=== PATIENT | female | born 1960 | race Caucasian/White ===

== ENCOUNTER 2017-03-07 19:49 | Inpatient (IN) | payer SELFPAY ==
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
[2017-03-07 20:24] LABS: % BASOPHILS 0.9 % (0.0-2.0); % EOSINOPHILS 0.5 % (0.0-5.0); % LYMPHOCYTES 17.3 % (20.0-50.0); % MONOCYTES 4.1 % (2.0-10.0); % NEUTROPHILS 77.2 % (40.0-80.0); HEMATOCRIT 34.9 % (35.0-45.0); HEMOGLOBIN 11.9 gm/dL (11.7-15.5); MEAN CELL VOLUME 98.3 fl (81-100); MEAN CORPUSCULAR HEMOGLOBIN 33.5 pg (27.0-31.0); MEAN CORPUSCULAR HGB CONC 34.1 pg (28.0-36.0); MEAN PLATELET VOLUME 7.2 fl; NEUTROPHILE ABSOLUTE 5.1 Th/cmm (1.8-8.0); PLATELET COUNT 265 Th/cmm (150-400); RED BLOOD COUNT 3.55 Mil/cmm (3.80-5.10); RED CELL DISTRIBUTION WIDTH 11.9 % (11.5-20.0); WHITE BLOOD COUNT 6.6 Th/cmm (4.8-10.8)
[2017-03-07 20:40] LABS: ALB/GLOB RATIO 1.4 (1.0-1.8); ALKALINE PHOSPHATASE 75 U/L (34-104); ANION GAP 7.5 (7.0-16.0); BILIRUBIN,TOTAL 0.3 mg/dL (0.3-1.0); BUN - UREA NITROGEN 12 mg/dL (7-25); BUN/CREATININE RATIO 13.3; CALCIUM SERUM 9.3 mg/dL (8.6-10.3); CARBON DIOXIDE 29.3 mEq/L (21.0-31.0); CHLORIDE 106 mEq/L (98-107); CREATININE - SERUM 0.9 mg/dL (0.6-1.2); GLUCOSE 104 mg/dL (70-105); POTASSIUM SERUM 3.8 mEq/L (3.5-5.1); SGOT 20 U/L (13-39); SGPT/ALT 13 U/L (7-52); SODIUM SERUM 139 mEq/L (136-145)
[2017-03-07] MEDS ORDERED: Albuterol Nebulizer 2.5mg/3mL HHN PRN (22:46)
[2017-03-07] MEDS ORDERED: Ipratropium Neb 0.5 mg/2.5 mL UD IH PRN (22:46)
[2017-03-07] MEDS ORDERED: guaiFENesin 200 MG/10 ML UDC PO PRN (22:46)
[2017-03-07] MEDS: D5-0.45NS 1,000 ML IV SCH (23:31)
--- NOTE | 2017-03-08 01:42 | Admit Criteria Form ---
Admit Criteria Forms - Admit Criteria Diagnosis: PSYCHIATRIC DISORDERS Clinical Indications for Inpatient Care (Place 'X' for any and all applicable criteria): Ongoing inpatient care may be needed for ANY ONE of the following(1)(2)(3)(4)(6) (7)(8): [ ]I. Danger to self or others not manageable at lower level of care. [ ]II. Grave disability (eg, inability to perform self care necessary at lower level of care) [ ]III. Agitation or inappropriate behavior interfering with care for primary condition (eg, attempting to discontinue lines or drains prematurely, unable to cooperate with respiratory care) [X]IV. Severe disability or disorder indicated by ALL of the following: [X]a) Severe behavioral health disorder-related symptoms or condition indicated by ANY ONE of the following: [ ]i) Severe problem with cognition, memory, judgment, or impulse control [X]ii) Severe clinical manifestations (eg, hallucinations, delusions, other acute psychotic symptoms, lora, extreme agitation or anxiety) [X]b) Patient management at lower level of care is not feasible until acute intervention or modification is initiated. Extended stay beyond goal length of stay for the primary condition may be indicated when ANY ONE of the following is present: (1)(2)(3)(4): [ ]a) Patient is a danger to self or others and not manageable at lower level of care. [ ]b) Behavior crisis management, including physical or chemical restraints, is required and is not available at a lower level of care. [ ]c) Behavioral symptoms (e.g., agitation, somnolence, inappropriate behavior) are present, and are not manageable at a lower level of care. [ ]d) Patient cannot understand follow-up treatment and crisis plan. [ ]e) Provider and supports are not sufficiently available at lower level of care. [ ]f) Patient cannot participate (e.g., verify absence of plan for harm) and is in needed of monitoring. The original [facility] content created by [facility] has been revised. The portions of the content which have been revised are identified through the use of italic text or in bold, and [facility] has neither reviewed nor approved the modified material. All other unmodified content is copyright [facility]. Please see references footnoted in the original [facility] edition 2016 Admit Criteria Met?: Yes
[2017-03-08 05:03] VITALS: BP 129/75
[2017-03-08] MEDS: Multivitamin w/ Minerals Tab PO SCH (08:38)
[2017-03-08] MEDS ORDERED: Haloperidol Lactate 5 mg/mL 1mL Vial IM ONE (13:26)
[2017-03-08] MEDS ORDERED: DONEPEZIL HCL 23 MG PO SCH (21:00)
[2017-03-08] MEDS ORDERED: Non-Formulary Item 1 EA (Melatonin [Melatonin] 10 MG) PO SCH (21:00)
[2017-03-08] MEDS ORDERED: OLANZAPINE PO SCH (21:00)
[2017-03-08] MEDS ORDERED: [UNRECOGNIZED DRUG - OTHER] PO SCH (21:00)
[2017-03-08] MEDS ORDERED: FLUOXETINE HCL PO SCH (21:00)
--- NOTE | 2017-03-08 21:17 | History & Physical ---
ADMIT DATE: 03/08/2017 CHIEF COMPLAINT: Increased agitation and change in mental status. HISTORY OF PRESENT ILLNESS: This is an unfortunate 56-year-old female apparently with early onset dementia, schizoaffective disorder, was admitted from the facility ____ in [place]. The patient [facility]. The patient is agitated, trying to get in other facility, not taking her medications. 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 PAST MEDICAL HISTORY: As mentioned in history present illness. PAST SURGICAL HISTORY: Unable to obtain from the patient. ALLERGIES: No known drug allergies. MEDICATIONS: Depakote, multivitamin, Tylenol. FAMILY HISTORY: Noncontributory. SOCIAL HISTORY: Resides in a nursing facility at this time. 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 REVIEW OF SYSTEMS: This is limited secondary to the patient's current mental state. We will try to get more detailed review of systems at a later date by talking to family members, ____, number [phone]. Also tried to get information from nursing staff at the [facility] in [place] [phone] as well as from Dr. Childers who has followed the patient for Psychiatry and the patient's primary care doctor at the facility. PHYSICAL EXAMINATION: VITAL SIGNS: Blood pressure 118/64, respirations 18, pulse 80, temperature 98.6. GENERAL: Middle-aged female patient with 1:1 and a bit agitated, pacing the room and gait ____ to be steady. NECK: Supple. No mass. LUNGS: Equal breath sounds, otherwise clear to auscultation. HEART: Regular rate and rhythm without appreciable murmur. ABDOMEN: Soft, nontender. EXTREMITIES: No clubbing, cyanosis. Positive excoriations. NEUROLOGIC: Limited, moving all 4 extremities. Again, gait is quite stable. LABORATORY DATA: Reviewed. Hemoglobin 11.3. Rest are within normal range. ASSESSMENT AND PLAN: Altered level of consciousness, increasing agitation, dementia, anemia, schizoaffective disorder. We will ____ altered level of consciousness, which is different from her baseline. We will refer the patient to Psychiatry for adjustment of psychotropic medication. We will also refer the patient to Neurology to make sure nothing is being missed as far as organic causes of change in mental status. We will continue IV hydration. We will send urine for C and S. We will continue to monitor the patient closely. We will place her on fall precaution as well as 1:1. [facility]# [id number]
[2017-03-09] MEDS: D5-0.45NS 1,000 ML IV SCH ×2 (01:01→18:10)
--- NOTE | 2017-03-09 05:09 | Consultation ---
DATE OF CONSULTATION: 03/08/2017 The patient was seen, chart reviewed, and discussed with staff. HISTORY OF PRESENT ILLNESS: The patient is a 56-year-old female, who was sent from her facility [facility] for increased agitation, anger outburst, confusion, and altered mental status. The patient is noted to be somewhat restless now on medical floor with lying, possible infection, UTI. The patient is a poor historian, confused, talking to herself. PAST PSYCHIATRIC HISTORY: Dementia, not otherwise specified. PAST MEDICAL HISTORY: As per H and P. PSYCHOSOCIAL HISTORY: supportive and involved . MENTAL STATUS EXAMINATION: The patient is oriented to person; not oriented to time or place. The patient is easily agitated, paranoid, responding to internal stimuli. Insight is poor. Judgment is impaired. ASSESSMENT: Psychosis, not otherwise specified; dementia, possible Alzheimer's type onset. PLAN: Would recommend continuation of medical supportive measures. The patient has been apparently not compliant with her psychiatric medications. The patient received Haldol 5, Ativan 1, and Benadryl 50 mg IM with good response. Consider using Haldol Decanoate to help improve compliance. We will follow closely while in the hospital. Encourage the patient to comply with medications. Thank you for the consultation. [facility]# [id number]
[2017-03-09 08:26] LABS: URINE BILIRUBIN NEGATIVE (NEGATIVE); URINE COLOR YELLOW; URINE GLUCOSE (UA) NEGATIVE (NEGATIVE); URINE KETONE NEGATIVE (NEGATIVE)
[2017-03-09 08:29] LABS: URINE BLOOD MODERATE (NEGATIVE); URINE PROTEIN NEGATIVE (NEGATIVE)
[2017-03-09 08:30] LABS: URINE BACTERIA FEW /hpf (NONE SEEN); URINE EPITHELIAL CELLS FEW /lpf (FEW); URINE UROBILINOGEN 0.2 E.U./dL (0.2 - 1.0)
[2017-03-09] MEDS: Multivitamin w/ Minerals Tab PO SCH (08:56)
--- NOTE | 2017-03-09 10:01 | Diagnostic Imaging Report ---
Portable chest x-ray History: Cough Allowing for portable technique the heart size is normal. No focal pulmonary parenchymal processes. No hilar or mediastinal abnormalities. Impression: No acute abnormalities.
--- NOTE | 2017-03-09 15:40 | Internal Medicine Prog Note ---
Internal Medicine Subjective - Subjective Patient seen and examined:: with staff, chart reviewed Patient is:: awake, verbal, interactive Patient Complaints of:: congestion Per staff patient is:: no adverse event, no episodes of fall, poor appetite, unstable gait, agitated, combative, noncompliant, confused Internal Medicine Objective - Results Result Diagrams: 03/07/17 20:16 03/07/17 20:16 Recent Labs: Laboratory Last Values WBC 6.6 Th/cmm (4.8-10.8) 03/07/17 20:16 RBC 3.55 Mil/cmm (3.80-5.10) L 03/07/17 20:16 Hgb 11.9 gm/dL (11.7-15.5) 03/07/17 20:16 Hct 34.9 % (35.0-45.0) L 03/07/17 20:16 MCV 98.3 fl (81-100) 03/07/17 20:16 MCH 33.5 pg (27.0-31.0) H 03/07/17 20: MCHC Differential 34.1 pg (28.0-36.0) 03/07/17 20:16 RDW 11.9 % (11.5-20.0) 03/07/17 20:16 Plt Count 265 Th/cmm (150-400) 03/07/17 20:16 MPV 7.2 fl 03/07/17 20:16 Neutrophils % 77.2 % (40.0-80.0) 03/07/17 20:16 Lymphocytes % 17.3 % (20.0-50.0) L 03/07/17 20:16 Monocytes % 4.1 % (2.0-10.0) 03/07/17 20:16 Eosinophils % 0.5 % (0.0-5.0) 03/07/17 20: Basophils % 0.9 % (0.0-2.0) 03/07/17 20:16 Sodium 139 mEq/L (136-145) 03/07/17 20:16 Potassium 3.8 mEq/L (3.5-5.1) 03/07/17 20:16 Chloride 106 mEq/L (98-107) 03/07/17 20:16 Carbon Dioxide 29.3 mEq/L (21.0-31.0) 03/07/17 20:16 Anion Gap 7.5 (7.0-16.0) 03/07/17 20:16 BUN 12 mg/dL (7-25) 03/07/17 20:16 Creatinine 0.9 mg/dL (0.6-1.2) 03/07/17 20:16 Est GFR ( Amer) > 60.0 ml/min (>90) 03/07/17 20:16 Est GFR (Non-Af Amer) > 60.0 ml/min 03/07/17 20:16 BUN/Creatinine Ratio 13.3 03/07/17 20:16 Glucose 104 mg/dL (70-105) 03/07/17 20:16 Calcium 9.3 mg/dL (8.6-10.3) 03/07/17 20:16 Total Bilirubin 0.3 mg/dL (0.3-1.0) 03/07/17 20:16 AST 20 U/L (13-39) 03/07/17 20:16 ALT 13 U/L (7-52) 03/07/17 20:16 Alkaline Phosphatase 75 U/L (34-104) 03/07/17 20:16 Total Protein 7.1 gm/dL (6.0-8.3) 03/07/17 20:16 Albumin 4.1 gm/dL (3.7-5.3) 03/07/17 20:16 Globulin 3.0 gm/dL 03/07/17 20:16 Albumin/Globulin Ratio 1.4 (1.0-1.8) 03/07/17 20:16 Urine Source CATH 03/09/17 07:15 Urine Color YELLOW 03/09/17 07:15 Urine Clarity CLEAR (CLEAR) 03/09/17 07:15 Urine pH 7.0 03/09/17 07:15 Ur Specific [place] 1.020 (1.005-1.030) 03/09/17 07:15 Urine Protein NEGATIVE mg/dL (NEGATIVE) 03/09/17 07:15 Urine Glucose (UA) NEGATIVE mg/dL (NEGATIVE) 03/09/17 07:15 Urine Ketones NEGATIVE mg/dL (NEGATIVE) 03/09/17 07:15 Urine Blood MODERATE (NEGATIVE) H 03/09/17 07:15 Urine Nitrate NEGATIVE (NEGATIVE) 03/09/17 07:15 Urine Bilirubin NEGATIVE (NEGATIVE) 03/09/17 07:15 Urine Urobilinogen 0.2 E.U./dL (0.2 - 1.0) 03/09/17 07:15 Ur Leukocyte Esterase TRACE (NEGATIVE) H 03/09/17 07:15 Urine RBC 10-25 /hpf (0-5) H 03/09/17 07:15 Urine WBC 6-10 /hpf (0-5) H 03/09/17 07:15 Ur Epithelial Cells FEW /lpf (FEW) 03/09/17 07:15 Urine Bacteria FEW /hpf (NONE SEEN) 03/09/17 07:15 Valproic Acid 61.2 ug/mL (50.0-100.0) 03/07/17 20:16 - Physical Exam Vitals and I&O: Vital Signs Temp 97.8 F 03/09/17 12:00 Pulse 84 03/09/17 12:00 Resp 18 03/09/17 12:00 BP 136/82 03/09/17 12:00 Pulse Ox 97 03/09/17 12:00 Intake & Output 03/08/17 03/09/17 03/09/17 18:59 06:59 18:59 Intake Total 1800 Balance 1800 Intake: Intake, IV Amount 1000 D5-0.45NS 1,000 ml @ 80 1000 mls/hr IV .[id number] [facility] Rx #:[id number] Oral 800 Other: # Voids 2 Active Medications: Current Medications Acetaminophen (Tylenol) 650 mg PO Q4H PRN PRN Reason: Pain Or Fever above 101 Stop: 05/06/17 22:45 Albuterol Sulfate (Albuterol 2.5mg/3ml Neb Ud) 2.5 mg HHN Q2HRT PRN PRN Reason: Shortness of Breath or Wheeze Stop: 05/06/17 22:45 Docusate Sodium (Colace) 100 mg PO DAILY [facility] Stop: 05/07/17 08:59 Last Admin: 03/09/17 08:56 Dose: 100 mg Guaifenesin (Robitussin) 200 mg PO Q4HR PRN PRN Reason: Cough or Congestion Stop: 05/06/17 22:45 Dextrose/Sodium Chloride (D5-0.45ns) 1,000 mls @ 80 mls/hr IV .[id number] [facility] Stop: 05/06/17 22:59 Last Admin: 03/09/17 01:01 Dose: 80 mls/hr Ipratropium [place] (Atrovent Neb 0.5mg/2.5ml) 0.5 mg IH Q2HRT PRN PRN Reason: Shortness of Breath or Wheeze Stop: 05/06/17 22:45 Memantine (Namenda) 10 mg PO BID [facility] Stop: 05/07/17 08:59 Last Admin: 03/09/17 08:55 Dose: 10 mg Ondansetron HCl (Zofran) 4 mg IV Q8H PRN PRN Reason: Nausea / Vomiting Stop: 05/06/17 22:45 Quetiapine Fumarate (Seroquel) 25 mg PO TID [facility] PRN Reason: Protocol Stop: 05/07/17 13:59 Last Admin: 03/09/17 13:04 Dose: 25 mg Valproate Sodium (Depakene) 500 mg PO 0900 [facility] PRN Reason: Protocol Stop: 05/07/17 08:59 Last Admin: 03/09/17 08:55 Dose: 500 mg Valproate Sodium (Depakene) 625 mg PO 2100 [facility] PRN Reason: Protocol Stop: 05/07/17 20:59 Zolpidem Tartrate (Ambien) 10 mg PO HS PRN PRN Reason: Insomnia Stop: 05/06/17 22:45 General: demented HEENT: NC/AT, PERRLA Neck: Supple, No JVD Lungs: CTAB Cardiovascular: RRR, Normal S1, Normal S2 Abdomen: soft non-tender, globular, positive bowel sound Extremities: excoriation Neurological: no change, unsteady, unable to follow command Internal Medicine Assmt/Plan - Assessment Assessment: uti Altered level of consciousness, increasing agitation, dementia, anemia, schizoaffective disorder - Plan Plan: cont on ivf cont w 1:1 will start on levaquin psych follow up had long discussion w miguelina
[2017-03-09] MEDS ORDERED: Haloperidol Lactate 5 mg/mL 1mL Vial IM PRN (18:51)
[2017-03-10] MEDS: Multivitamin w/ Minerals Tab PO SCH (08:47)
--- NOTE | 2017-03-10 11:06 | Internal Medicine Prog Note ---
Internal Medicine Subjective - Subjective Patient seen and examined:: with staff, chart reviewed Patient is:: awake, verbal, non-interactive Per staff patient is:: no adverse event, no episodes of fall, agitated, combative, noncompliant, confused Internal Medicine Objective - Results Result Diagrams: 03/07/17 20:16 03/07/17 20:16 Recent Labs: Laboratory Last Values WBC 6.6 Th/cmm (4.8-10.8) 03/07/17 20:16 RBC 3.55 Mil/cmm (3.80-5.10) L 03/07/17 20:16 Hgb 11.9 gm/dL (11.7-15.5) 03/07/17 20:16 Hct 34.9 % (35.0-45.0) L 03/07/17 20:16 MCV 98.3 fl (81-100) 03/07/17 20:16 MCH 33.5 pg (27.0-31.0) H 03/07/17 20:16 MCHC Differential 34.1 pg (28.0-36.0) 03/07/17 20:16 RDW 11.9 % (11.5-20.0) 03/07/17 20:16 Plt Count 265 Th/cmm (150-400) 03/07/17 20:16 MPV 7.2 fl 03/07/17 20:16 Neutrophils % 77.2 % (40.0-80.0) 03/07/17 20:16 Lymphocytes % 17.3 % (20.0-50.0) L 03/07/17 20:16 Monocytes % 4.1 % (2.0-10.0) 03/07/17 20:16 Eosinophils % 0.5 % (0.0-5.0) 03/07/17 20:16 Basophils % 0.9 % (0.0-2.0) 03/07/17 20:16 Sodium 139 mEq/L (136-145) 03/07/17 20:16 Potassium 3.8 mEq/L (3.5-5.1) 03/07/17 20:16 Chloride 106 mEq/L (98-107) 03/07/17 20:16 Carbon Dioxide 29.3 mEq/L (21.0-31.0) 03/07/17 20:16 Anion Gap 7.5 (7.0-16.0) 03/07/17 20:16 BUN 12 mg/dL (7-25) 03/07/17 20:16 Creatinine 0.9 mg/dL (0.6-1.2) 03/07/17 20:16 Est GFR ( Amer) > 60.0 ml/min (>90) 03/07/17 20:16 Est GFR (Non-Af Amer) > 60.0 ml/min 03/07/17 20:16 BUN/Creatinine Ratio 13.3 03/07/17 20:16 Glucose 104 mg/dL (70-105) 03/07/17 20:16 Calcium 9.3 mg/dL (8.6-10.3) 03/07/17 20:16 Total Bilirubin 0.3 mg/dL (0.3-1.0) 03/07/17 20:16 AST 20 U/L (13-39) 03/07/17 20:16 ALT 13 U/L (7-52) 03/07/17 20:16 Alkaline Phosphatase 75 U/L (34-104) 03/07/17 20:16 Total Protein 7.1 gm/dL (6.0-8.3) 03/07/17 20:16 Albumin 4.1 gm/dL (3.7-5.3) 03/07/17 20:16 Globulin 3.0 gm/dL 03/07/17 20:16 Albumin/Globulin Ratio 1.4 (1.0-1.8) 03/07/17 20:16 Urine Source CATH 03/09/17 07:15 Urine Color YELLOW 03/09/17 07:15 Urine Clarity CLEAR (CLEAR) 03/09/17 07:15 Urine pH 7.0 03/09/17 07:15 Ur Specific [place] 1.020 (1.005-1.030) 03/09/17 07:15 Urine Protein NEGATIVE mg/dL (NEGATIVE) 03/09/17 07:15 Urine Glucose (UA) NEGATIVE mg/dL (NEGATIVE) 03/09/17 07:15 Urine Ketones NEGATIVE mg/dL (NEGATIVE) 03/09/17 07:15 Urine Blood MODERATE (NEGATIVE) H 03/09/17 07:15 Urine Nitrate NEGATIVE (NEGATIVE) 03/09/17 07:15 Urine Bilirubin NEGATIVE (NEGATIVE) 03/09/17 07:15 Urine Urobilinogen 0.2 E.U./dL (0.2 - 1.0) 03/09/17 07:15 Ur Leukocyte Esterase TRACE (NEGATIVE) H 03/09/17 07:15 Urine RBC 10-25 /hpf (0-5) H 03/09/17 07:15 Urine WBC 6-10 /hpf (0-5) H 03/09/17 07:15 Ur Epithelial Cells FEW /lpf (FEW) 03/09/17 07:15 Urine Bacteria FEW /hpf (NONE SEEN) 03/09/17 07:15 Valproic Acid 61.2 ug/mL (50.0-100.0) 03/07/17 20:16 - Physical Exam Vitals and I&O: Vital Signs Temp 98.0 F 03/10/17 04:00 Pulse 97 03/10/17 08:04 Resp 14 03/10/17 08:04 BP 130/72 03/10/17 04:00 Pulse Ox 95 03/10/17 08:04 Intake & Output 03/09/17 03/10/17 03/10/17 18:59 06:59 18:59 Intake Total 1950 150 Output Total 1 Balance 1950 149 Weight (lbs) 54.885 kg Intake: Intake, IV Amount 1000 D5-0.45NS 1,000 ml @ 80 1000 mls/hr IV .[id number] [facility] Rx #:[id number] Oral 950 150 Output: Urine 1 Other: # Voids 4 1 # Bowel Movements 2 0 Active Medications: Current Medications Acetaminophen (Tylenol) 650 mg PO Q4H PRN PRN Reason: Pain Or Fever above 101 Stop: 05/06/17 22:45 Albuterol Sulfate (Albuterol 2.5mg/3ml Neb Ud) 2.5 mg HHN Q2HRT PRN PRN Reason: Shortness of Breath or Wheeze Stop: 05/06/17 22:45 Diphenhydramine HCl (Benadryl 50 Mg/Ml) 50 mg IM UD PRN PRN Reason: Agitation Stop: 03/10/17 18:52 Docusate Sodium (Colace) 100 mg PO DAILY [facility] Stop: 05/07/17 08:59 Last Admin: 03/10/17 08:47 Dose: 100 mg Guaifenesin (Robitussin) 200 mg PO Q4HR PRN PRN Reason: Cough or Congestion Stop: 05/06/17 22:45 Haloperidol Lactate (Haldol) 2.5 mg IM UD PRN PRN Reason: Agitation Stop: 03/10/17 18:50 Dextrose/Sodium Chloride (D5-0.45ns) 1,000 mls @ 80 mls/hr IV .[id number] [facility] Stop: 05/06/17 22:59 Last Admin: 03/09/17 18:10 Dose: 80 mls/hr Ipratropium [place] (Atrovent Neb 0.5mg/2.5ml) 0.5 mg IH Q2HRT PRN PRN Reason: Shortness of Breath or Wheeze Stop: 05/06/17 22:45 Levofloxacin (Levaquin) 500 mg PO DAILY [facility] Stop: 05/09/17 08:59 Last Admin: 03/10/17 08:47 Dose: 500 mg Memantine (Namenda) 10 mg PO BID [facility] Stop: 05/07/17 08:59 Last Admin: 03/10/17 08:48 Dose: 10 mg Ondansetron HCl (Zofran) 4 mg IV Q8H PRN PRN Reason: Nausea / Vomiting Stop: 05/06/17 22:45 Quetiapine Fumarate (Seroquel) 50 mg PO TID [facility] PRN Reason: Protocol Stop: 05/08/17 20:59 Last Admin: 03/10/17 08:48 Dose: 50 mg Valproate Sodium (Depakene) 500 mg PO 0900 [facility] PRN Reason: Protocol Stop: 05/07/17 08:59 Last Admin: 03/10/17 08:48 Dose: 500 mg Valproate Sodium (Depakene) 625 mg PO 2100 [facility] PRN Reason: Protocol Stop: 05/07/17 20:59 Last Admin: 03/09/17 21:00 Dose: Not Given Zolpidem Tartrate (Ambien) 10 mg PO HS PRN PRN Reason: Insomnia Stop: 05/06/17 22:45 General: demented HEENT: NC/AT, PERRLA Neck: Supple, No JVD Lungs: CTAB Cardiovascular: RRR, Normal S1, Normal S2 Abdomen: soft non-tender, globular, positive bowel sound Extremities: excoriation Neurological: no change, disorganized, unable to follow command Internal Medicine Assmt/Plan - Assessment Assessment: uti Altered level of consciousness, increasing agitation, dementia, anemia, schizoaffective disorder - Plan Plan: cont on ivf cont w 1:1 will start on levaquin psych follow up had long discussion w miguelina
[2017-03-11 06:10] LABS: % BASOPHILS 0.1 % (0.0-2.0); % EOSINOPHILS 1.1 % (0.0-5.0); % LYMPHOCYTES 34.3 % (20.0-50.0); % MONOCYTES 6.6 % (2.0-10.0); % NEUTROPHILS 57.9 % (40.0-80.0); HEMATOCRIT 32.4 % (35.0-45.0); MEAN CELL VOLUME 98.7 fl (81-100); MEAN CORPUSCULAR HEMOGLOBIN 33.4 pg (27.0-31.0); MEAN CORPUSCULAR HGB CONC 33.8 pg (28.0-36.0); MEAN PLATELET VOLUME 7.4 fl; NEUTROPHILE ABSOLUTE 3.1 Th/cmm (1.8-8.0); PLATELET COUNT 255 Th/cmm (150-400); RED BLOOD COUNT 3.28 Mil/cmm (3.80-5.10); WHITE BLOOD COUNT 5.5 Th/cmm (4.8-10.8)
[2017-03-11 06:34] LABS: ALB/GLOB RATIO 1.3 (1.0-1.8); ALKALINE PHOSPHATASE 61 U/L (34-104); BILIRUBIN,TOTAL 0.5 mg/dL (0.3-1.0); BUN - UREA NITROGEN 13 mg/dL (7-25); CALCIUM SERUM 9.7 mg/dL (8.6-10.3); CARBON DIOXIDE 32.6 mEq/L (21.0-31.0); CHLORIDE 106 mEq/L (98-107); GLUCOSE 81 mg/dL (70-105); MAGNESIUM 2.2 mg/dL (1.9-2.7); POTASSIUM SERUM 4.6 mEq/L (3.5-5.1); SGOT 16 U/L (13-39); SGPT/ALT 10 U/L (7-52); SODIUM SERUM 139 mEq/L (136-145)
[2017-03-11] MEDS: Multivitamin w/ Minerals Tab PO SCH (10:16)
--- NOTE | 2017-03-11 10:18 | Internal Medicine Prog Note ---
Internal Medicine Subjective - Subjective Patient seen and examined:: with staff, chart reviewed Patient is:: asleep, verbal, non-interactive Patient Complaints of:: congestion Per staff patient is:: no adverse event, poor appetite, agitated, combative, noncompliant Internal Medicine Objective - Results Result Diagrams: 03/11/17 05:17 03/11/17 05:17 Recent Labs: Laboratory Last Values WBC 5.5 Th/cmm (4.8-10.8) 03/11/17 05:17 RBC 3.28 Mil/cmm (3.80-5.10) L 03/11/17 05:17 Hgb 11.0 gm/dL (11.7-15.5) L 03/11/17 05:17 Hct 32.4 % (35.0-45.0) L 03/11/17 05:17 MCV 98.7 fl (81-100) 03/11/17 05:17 MCH 33.4 pg (27.0-31.0) H 03/11/17 05:17 MCHC Differential 33.8 pg (28.0-36.0) 03/11/17 05:17 RDW 12.0 % (11.5-20.0) 03/11/17 05:17 Plt Count 255 Th/cmm (150-400) 03/11/17 05:17 MPV 7.4 fl 03/11/17 05:17 Neutrophils % 57.9 % (40.0-80.0) 03/11/17 05:17 Lymphocytes % 34.3 % (20.0-50.0) 03/11/17 05:17 Monocytes % 6.6 % (2.0-10.0) 03/11/17 05:17 Eosinophils % 1.1 % (0.0-5.0) 03/11/17 05:17 Basophils % 0.1 % (0.0-2.0) 03/11/17 05:17 Sodium 139 mEq/L (136-145) 03/11/17 05:17 Potassium 4.6 mEq/L (3.5-5.1) 03/11/17 05:17 Chloride 106 mEq/L (98-107) 03/11/17 05:17 Carbon Dioxide 32.6 mEq/L (21.0-31.0) H 03/11/17 05:17 Anion Gap 5.0 (7.0-16.0) L 03/11/17 05:17 BUN 13 mg/dL (7-25) 03/11/17 05:17 Creatinine 1.0 mg/dL (0.6-1.2) 03/11/17 05:17 Est GFR ( Amer) > 60.0 ml/min (>90) 03/11/17 05:17 Est GFR (Non-Af Amer) > 60.0 ml/min 03/11/17 05:17 BUN/Creatinine Ratio 13.0 03/11/17 05:17 Glucose 81 mg/dL (70-105) 03/11/17 05:17 Calcium 9.7 mg/dL (8.6-10.3) 03/11/17 05:17 Magnesium 2.2 mg/dL (1.9-2.7) 03/11/17 05:17 Total Bilirubin 0.5 mg/dL (0.3-1.0) 03/11/17 05:17 AST 16 U/L (13-39) 03/11/17 05:17 ALT 10 U/L (7-52) 03/11/17 05:17 Alkaline Phosphatase 61 U/L (34-104) 03/11/17 05:17 Total Protein 6.4 gm/dL (6.0-8.3) 03/11/17 05:17 Albumin 3.6 gm/dL (3.7-5.3) L 03/11/17 05:17 Globulin 2.8 gm/dL 03/11/17 05:17 Albumin/Globulin Ratio 1.3 (1.0-1.8) 03/11/17 05:17 Urine Source CATH 03/09/17 07:15 Urine Color YELLOW 03/09/17 07:15 Urine Clarity CLEAR (CLEAR) 03/09/17 07:15 Urine pH 7.0 03/09/17 07:15 Ur Specific [place] 1.020 (1.005-1.030) 03/09/17 07:15 Urine Protein NEGATIVE mg/dL (NEGATIVE) 03/09/17 07:15 Urine Glucose (UA) NEGATIVE mg/dL (NEGATIVE) 03/09/17 07:15 Urine Ketones NEGATIVE mg/dL (NEGATIVE) 03/09/17 07:15 Urine Blood MODERATE (NEGATIVE) H 03/09/17 07:15 Urine Nitrate NEGATIVE (NEGATIVE) 03/09/17 07:15 Urine Bilirubin NEGATIVE (NEGATIVE) 03/09/17 07:15 Urine Urobilinogen 0.2 E.U./dL (0.2 - 1.0) 03/09/17 07:15 Ur Leukocyte Esterase TRACE (NEGATIVE) H 03/09/17 07:15 Urine RBC 10-25 /hpf (0-5) H 03/09/17 07:15 Urine WBC 6-10 /hpf (0-5) H 03/09/17 07:15 Ur Epithelial Cells FEW /lpf (FEW) 03/09/17 07:15 Urine Bacteria FEW /hpf (NONE SEEN) 03/09/17 07:15 Valproic Acid 61.2 ug/mL (50.0-100.0) 03/07/17 20:16 - Physical Exam Vitals and I&O: Vital Signs Temp 97 F 03/11/17 03:44 Pulse 60 03/11/17 03:44 Resp 18 03/11/17 03:44 BP 97/52 03/11/17 03:44 Pulse Ox 95 03/11/17 03:44 Intake & Output 03/10/17 03/11/17 03/11/17 18:59 06:59 18:59 Intake Total 850 340 Balance 850 340 Weight (lbs) 52.617 kg Intake: Oral 850 340 Other: # Voids 3 3 # Bowel Movements 1 0 Stool Characteristics Soft Soft Formed Formed Active Medications: Current Medications Acetaminophen (Tylenol) 650 mg PO Q4H PRN PRN Reason: Pain Or Fever above 101 Stop: 05/06/17 22:45 Albuterol Sulfate (Albuterol 2.5mg/3ml Neb Ud) 2.5 mg HHN Q2HRT PRN PRN Reason: Shortness of Breath or Wheeze Stop: 05/06/17 22:45 Docusate Sodium (Colace) 100 mg PO DAILY JAGDEEP Stop: 05/07/17 08:59 Last Admin: 03/10/17 08:47 Dose: 100 mg Guaifenesin (Robitussin) 200 mg PO Q4HR PRN PRN Reason: Cough or Congestion Stop: 05/06/17 22:45 Dextrose/Sodium Chloride (D5-0.45ns) 1,000 mls @ 80 mls/hr IV .[id number] [facility] Stop: 05/06/17 22:59 Last Admin: 03/09/17 18:10 Dose: 80 mls/hr Ipratropium [place] (Atrovent Neb 0.5mg/2.5ml) 0.5 mg IH Q2HRT PRN PRN Reason: Shortness of Breath or Wheeze Stop: 05/06/17 22:45 Levofloxacin (Levaquin) 500 mg PO DAILY [facility] Stop: 05/09/17 08:59 Last Admin: 03/11/17 10:16 Dose: 500 mg Memantine (Namenda) 10 mg PO BID [facility] Stop: 05/07/17 08:59 Last Admin: 03/11/17 10:16 Dose: 10 mg Ondansetron HCl (Zofran) 4 mg IV Q8H PRN PRN Reason: Nausea / Vomiting Stop: 05/06/17 22:45 Quetiapine Fumarate (Seroquel) 50 mg PO TID JAGDEEP PRN Reason: Protocol Stop: 05/08/17 20:59 Last Admin: 03/11/17 10:16 Dose: 50 mg Valproate Sodium (Depakene) 500 mg PO 0900 [facility] PRN Reason: Protocol Stop: 05/07/17 08:59 Last Admin: 03/11/17 10:15 Dose: 500 mg Valproate Sodium (Depakene) 625 mg PO 2100 [facility] PRN Reason: Protocol Stop: 05/07/17 20:59 Last Admin: 03/10/17 21:20 Dose: 625 mg Zolpidem Tartrate (Ambien) 10 mg PO HS PRN PRN Reason: Insomnia Stop: 05/06/17 22:45 Last Admin: 03/10/17 21:20 Dose: 10 mg General: demented HEENT: NC/AT, PERRLA Neck: Supple, No JVD Lungs: CTAB Cardiovascular: RRR, Normal S1, Normal S2 Abdomen: soft non-tender, globular, positive bowel sound Extremities: excoriation Neurological: no change, disorganized, unable to follow command Internal Medicine Assmt/Plan - Assessment Assessment: uti Altered level of consciousness, increasing agitation, dementia, anemia, schizoaffective disorder - Plan Plan: cont on ivf cont w 1:1 will start on levaquin psych follow up had long discussion w miguelina
[2017-03-12] MEDS: Multivitamin w/ Minerals Tab PO SCH (08:29)
--- NOTE | 2017-03-12 22:35 | Discharge Summary ---
DATE OF DISCHARGE: 03/12/2017 CHIEF COMPLAINT: Increasing agitation, change in mental status. FINAL DIAGNOSES: Altered level of consciousness with increasing agitation secondary to worsening dementia, noncompliance, anemia, schizoaffective disorder. 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 The patient needed to be cleared medically for further management. PHYSICAL EXAMINATION: VITAL SIGNS: Blood pressure 99/57, respirations 18, pulse 65, and temperature 98.7. GENERAL: A middle-aged female in no acute distress. ____ the patient with a one-to-one. NECK: Supple. LUNGS: Clear with few rhonchi. HEART: Regular rate and rhythm without appreciable murmurs. ABDOMEN: Soft, nontender. EXTREMITIES: Positive excoriations. NEUROLOGIC: Limited. HOSPITAL COURSE: The patient was also diagnosed with UTI, ____ IV hydration and IV antibiotic. The patient on one-to-one. The patient was seen by Dr. Shi and Dr. Childers. The patient was also seen by Dr. Brody. The patient's condition remained stable and was cleared medically. CONDITION ON DISCHARGE: Fair. DISCHARGE INSTRUCTIONS: The patient to be transferred to a custodial facility and a locked unit. JOB# [id number]
--- NOTE | 2017-03-13 02:54 | Progress Notes ---
DATE: 03/12/2017 SUBJECTIVE: I met this patient, discussed with staff, and chart reviewed. Still confused, irritable, but her agitation is decreasing and she is taking her medications. Her p.o. intake is being monitored closely. The patient is denying feeling depressed. The patient's blood pressure is slightly ____ on lower side. ASSESSMENT: Psychosis and agitation decreasing, cognitive disturbances still present. I spoke with , discussed condition in details. The appears to be very receptive, discussed placement options. We will continue current dose of Depakote and Seroquel, use Ativan 0.5 mg p.o. q.4-6 hours p.r.n. anxiety. Monitor closely. The patient is compliant with her medications and has not been aggressive. JOB# [id number]
--- NOTE | 2017-03-13 08:08 | Consultation ---
DATE OF CONSULTATION: 03/12/2017 HISTORY OF PRESENT ILLNESS: The patient is a 56-year-old. The patient with diagnosis of dementia. The patient brought in because of altered mentation. The patient much more awake, alert, now sitting up, feeding herself. She is not able to give any history. PAST MEDICAL HISTORY: Dementia, schizoaffective disorder. MEDICATIONS: Per reconciliation. SOCIAL HISTORY: In a nursing facility. 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 REVIEW OF SYSTEMS: No headache, no seizures. The patient swallows okay. Incontinence. PHYSICAL EXAMINATION: VITAL SIGNS: Temperature 98.2, blood pressure 120/65, pulse is 80. NECK: Supple. No neck bruits. HEART: Sounds S1, S2. NEUROLOGIC: The patient is sitting up. She would not even give me her name. She ____. She followed some simple instruction. She will open and close her eyes for me. She did lift her arms. Really, no other cognitive testing possible. The patient ____. Workup noted. She had been to [facility]. ASSESSMENT: 1. The patient with altered mentation, ____ sensorium is better, so the patient has underlying history of early onset Alzheimer. MRI in the past had shown severe atrophy. 2. History of schizoaffective disorder. 3. Urinary tract infection. PLAN: At this time, continue present treatment. The patient's parkinsonian features could be secondary to medication or related to her disease. [facility]# [id number]
[2017-03-13] MEDS: Multivitamin w/ Minerals Tab PO SCH (08:50)
--- NOTE | 2017-03-13 14:13 | Internal Medicine Prog Note ---
Internal Medicine Subjective - Subjective Patient seen and examined:: with staff, chart reviewed Patient is:: awake, verbal, interactive Per staff patient is:: no adverse event, no episodes of fall, poor appetite, noncompliant Internal Medicine Objective - Results Result Diagrams: 03/11/17 05:17 03/11/17 05:17 Recent Labs: Laboratory Last Values WBC 5.5 Th/cmm (4.8-10.8) 03/11/17 05:17 RBC 3.28 Mil/cmm (3.80-5.10) L 03/11/17 05:17 Hgb 11.0 gm/dL (11.7-15.5) L 03/11/17 05:17 Hct 32.4 % (35.0-45.0) L 03/11/17 05:17 MCV 98.7 fl (81-100) 03/11/17 05:17 MCH 33.4 pg (27.0-31.0) H 03/11/17 05:17 MCHC Differential 33.8 pg (28.0-36.0) 03/11/17 05:17 RDW 12.0 % (11.5-20.0) 03/11/17 05:17 Plt Count 255 Th/cmm (150-400) 03/11/17 05:17 MPV 7.4 fl 03/11/17 05:17 Neutrophils % 57.9 % (40.0-80.0) 03/11/17 05:17 Lymphocytes % 34.3 % (20.0-50.0) 03/11/17 05:17 Monocytes % 6.6 % (2.0-10.0) 03/11/17 05:17 Eosinophils % 1.1 % (0.0-5.0) 03/11/17 05:17 Basophils % 0.1 % (0.0-2.0) 03/11/17 05:17 Sodium 139 mEq/L (136-145) 03/11/17 05:17 Potassium 4.6 mEq/L (3.5-5.1) 03/11/17 05:17 Chloride 106 mEq/L (98-107) 03/11/17 05:17 Carbon Dioxide 32.6 mEq/L (21.0-31.0) H 03/11/17 05:17 Anion Gap 5.0 (7.0-16.0) L 03/11/17 05:17 BUN 13 mg/dL (7-25) 03/11/17 05:17 Creatinine 1.0 mg/dL (0.6-1.2) 03/11/17 05:17 Est GFR ( Amer) > 60.0 ml/min (>90) 03/11/17 05:17 Est GFR (Non-Af Amer) > 60.0 ml/min 03/11/17 05:17 BUN/Creatinine Ratio 13.0 03/11/17 05:17 Glucose 81 mg/dL (70-105) 03/11/17 05:17 Calcium 9.7 mg/dL (8.6-10.3) 03/11/17 05:17 Magnesium 2.2 mg/dL (1.9-2.7) 03/11/17 05:17 Total Bilirubin 0.5 mg/dL (0.3-1.0) 03/11/17 05:17 AST 16 U/L (13-39) 03/11/17 05:17 ALT 10 U/L (7-52) 03/11/17 05:17 Alkaline Phosphatase 61 U/L (34-104) 03/11/17 05:17 Total Protein 6.4 gm/dL (6.0-8.3) 03/11/17 05:17 Albumin 3.6 gm/dL (3.7-5.3) L 03/11/17 05:17 Globulin 2.8 gm/dL 03/11/17 05:17 Albumin/Globulin Ratio 1.3 (1.0-1.8) 03/11/17 05:17 Urine Source CATH 03/09/17 07:15 Urine Color YELLOW 03/09/17 07:15 Urine Clarity CLEAR (CLEAR) 03/09/17 07:15 Urine pH 7.0 03/09/17 07:15 Ur Specific [place] 1.020 (1.005-1.030) 03/09/17 07:15 Urine Protein NEGATIVE mg/dL (NEGATIVE) 03/09/17 07:15 Urine Glucose (UA) NEGATIVE mg/dL (NEGATIVE) 03/09/17 07:15 Urine Ketones NEGATIVE mg/dL (NEGATIVE) 03/09/17 07:15 Urine Blood MODERATE (NEGATIVE) H 03/09/17 07:15 Urine Nitrate NEGATIVE (NEGATIVE) 03/09/17 07:15 Urine Bilirubin NEGATIVE (NEGATIVE) 03/09/17 07:15 Urine Urobilinogen 0.2 E.U./dL (0.2 - 1.0) 03/09/17 07:15 Ur Leukocyte Esterase TRACE (NEGATIVE) H 03/09/17 07:15 Urine RBC 10-25 /hpf (0-5) H 03/09/17 07:15 Urine WBC 6-10 /hpf (0-5) H 03/09/17 07:15 Ur Epithelial Cells FEW /lpf (FEW) 03/09/17 07:15 Urine Bacteria FEW /hpf (NONE SEEN) 03/09/17 07:15 Valproic Acid 61.2 ug/mL (50.0-100.0) 03/07/17 20:16 - Physical Exam Vitals and I&O: Vital Signs Temp 97.6 F 03/13/17 04:00 Pulse 54 03/13/17 07:45 Resp 18 03/13/17 09:41 BP 123/71 03/13/17 04:00 Pulse Ox 100 03/13/17 07:45 Intake & Output 03/12/17 03/13/17 03/13/17 18:59 06:59 18:59 Intake Total 300 Balance 300 Weight (lbs) 57.198 kg 52.758 kg Intake: Oral 300 Other: # Voids 2 # Bowel Movements 0 Stool Characteristics Soft Formed Active Medications: Current Medications Acetaminophen (Tylenol) 650 mg PO Q4H PRN PRN Reason: Pain Or Fever above 101 Stop: 05/06/17 22:45 Last Admin: 03/11/17 14:27 Dose: 650 mg Albuterol Sulfate (Albuterol 2.5mg/3ml Neb Ud) 2.5 mg HHN Q2HRT PRN PRN Reason: Shortness of Breath or Wheeze Stop: 05/06/17 22:45 Docusate Sodium (Colace) 100 mg PO DAILY JAGDEEP Stop: 05/07/17 08:59 Last Admin: 03/13/17 08:50 Dose: 100 mg Guaifenesin (Robitussin) 200 mg PO Q4HR PRN PRN Reason: Cough or Congestion Stop: 05/06/17 22:45 Dextrose/Sodium Chloride (D5-0.45ns) 1,000 mls @ 80 mls/hr IV .[id number] [facility] Stop: 05/06/17 22:59 Last Admin: 03/09/17 18:10 Dose: 80 mls/hr Ipratropium [place] (Atrovent Neb 0.5mg/2.5ml) 0.5 mg IH Q2HRT PRN PRN Reason: Shortness of Breath or Wheeze Stop: 05/06/17 22:45 Levofloxacin (Levaquin) 500 mg PO DAILY [facility] Stop: 05/09/17 08:59 Last Admin: 03/13/17 08:50 Dose: 500 mg Lorazepam (Ativan) 0.5 mg PO Q4HR PRN; Protocol PRN Reason: Anxiety Stop: 05/11/17 18:48 Memantine (Namenda) 10 mg PO BID [facility] Stop: 05/07/17 08:59 Last Admin: 03/13/17 08:50 Dose: 10 mg Ondansetron HCl (Zofran) 4 mg IV Q8H PRN PRN Reason: Nausea / Vomiting Stop: 05/06/17 22:45 Quetiapine Fumarate (Seroquel) 50 mg PO TID JAGDEEP PRN Reason: Protocol Stop: 05/08/17 20:59 Last Admin: 03/13/17 08:50 Dose: 50 mg Valproate Sodium (Depakene) 500 mg PO 0900 [facility] PRN Reason: Protocol Stop: 05/07/17 08:59 Last Admin: 03/13/17 08:50 Dose: 500 mg Valproate Sodium (Depakene) 625 mg PO 2100 [facility] PRN Reason: Protocol Stop: 05/07/17 20:59 Last Admin: 03/12/17 20:46 Dose: 625 mg Zolpidem Tartrate (Ambien) 10 mg PO HS PRN PRN Reason: Insomnia Stop: 05/06/17 22:45 Last Admin: 03/12/17 20:45 Dose: 10 mg General: demented HEENT: NC/AT, PERRLA Neck: Supple, No JVD Lungs: congested Cardiovascular: RRR, Normal S1, Normal S2 Abdomen: soft non-tender, thin, globular Extremities: pedal pulses, excoriation, contracture Neurological: no change Internal Medicine Assmt/Plan - Assessment Assessment: uti Altered level of consciousness, increasing agitation, dementia, anemia, schizoaffective disorder - Plan Plan: cont on ivf cont w 1:1 will start on levaquin psych follow up had long discussion w miguelina Nutritional Asmnt/Malnutr-PDOC - Dietary Evaluation Malnutrition Findings (Please click <Entered> for more info): Nutritional Asmnt/Malnutrition Start: 03/12/17 12: 49 Text: Status: Complete Freq: Document 03/12/17 12:49 GSUN (Rec: 03/12/17 13:08 GSUN [id number]) Nutritional Asmnt/Malnutrition Patient General Information Nutritional Screening Moderate Risk Screening Diagnosis ALOC, increasing agitation, dementia possibly Alzheimer's type onset Pertinent Medical Hx/Surgical Hx Early onset dementia, schizoaffective disorder Subjective Information 56 year old female from SNF. Visited pt with RN and 1:1 sitter at bedside. Pt was awake, confused, unable to interview due to cognition. Pt appeared guarded, unable to complete physical assessment. Pt appeared thin overall, mild wasting to temples. Avg PO intake 33% past 13 meals, meeting 56% kcal and 65% prot needs, suboptimal PO intake 5 days. Observed pudding and juice finished on table. TRAVEL CONSULTANT stated pt likes sweets, pt will eat all the sweets but refuse nava. Current Diet Order/ Nutrition Support Regular Pertinent Medications D5-0.45ns, Colace, Zofran, Seroquel Pertinent Labs Reviewed. Nutritional Hx/Data Height 1.68 m Height (Calculated Centimeters) 167.6 Current Weight (lbs) 57.198 kg Weight (Calculated Kilograms) 57.2 Weight (Calculated Grams) 76208.0 [place] Body Weight 130 Weight Status Approriate GI Symptoms Skin Integrity/Comment: [place] 22. Skin intact. Current %PO Poor (25-49%) Estimated Nutritional Goals BEE in Kcals: Using Current wt Calories/Kcals/Kg CBW 57.2kg Kcals Calculated 1430-1716kcal (25-30kcal/kg) Protein: Using Current wt Protein g/kg: CBW Protein Calculated 57g (1g/kg) Fluid: ml 1430-1716ml (1ml/kcal) Nutritional Problem 1. Problem Problem Inadequate oral food beverage intake related to Etiology cognition aeb Signs/Symptoms: meeting ~50% of estimated nutritional needs day 5 Intervention/Recommendation Comments 1. Continue with regular diet. Recommend Boost BID. 2. Monitor weight. Suboptimal PO intake day 5. Expected Outcomes/Goals Expected Outcomes/Goals 1. PO intake to meet at least 75% fo estimated nutritional needs.
== END 2017-03-13 16:15 | DRG 57 ==
LOC: ER 19:49 → MSI 21:17
PROVIDERS: ADMIT Internal Medicine; ATTEND Internal Medicine
DX: G30.9 Alzheimer's disease, unspecified (principal); F02.81 Dementia in other diseases classified elsewhere, unspecified severity, with behavioral disturbance; N39.0 Urinary tract infection, site not specified; F25.9 Schizoaffective disorder, unspecified; D64.9 Anemia, unspecified; Z66 Do not resuscitate; F29 Unspecified psychosis not due to a substance or known physiological condition; Z91.19 Patient's noncompliance with other medical treatment and regimen
CPT/HCPCS: 36415-UA; 71010-TC; 80053-TC; 80164-TC; 81001-TC; 83735-TC; 85025-TC; 93005; 94760; J1200; J1630; J2060; Z7610

== ENCOUNTER 2017-03-31 18:37 | Inpatient (IN) | payer SELFPAY ==
--- NOTE | 2017-03-31 18:44 | ED Physician Chart ---
Chief Complaint/HPI - Patient Information Date Seen:: 03/31/17 Time Seen:: 18:40 Chief Complaint:: Chin laceration History of Present Illness:: Brought in by ambulance from nursing facility because pt reportedly fell forward from a chair earlier today and sustained a laceration in her chin. No LOC. No mentation change. No other bodily injury or pain. Pt has h/o dementia with Alzheimer's Dz. H & P are limited because pt is uncooperative. Last tetanus immunization is unknown. Allergies:: Allergies Allergy/AdvReac Type Severity Reaction Status Date / Time No Known Allergies Allergy Verified 03/07/17 20:37 Vitals:: see Nurse Note. Historian:: Patient, Medical Records (from transferring facility.) Family MD/PCP:: Dr. Doty LMP:: Postmenopausal Review:: Nurse's Note Reviewed Past Medical History - Past Medical History Past Medical History: Dementia (with Alzheimer's Dz.) Psychiatricy History: Bipolar, Dementia Family Medical History - Family Member Mother History Unknown: Yes Ethnicity: Unknown Living Status: Unknown Physical Exam - Physical Examination General/Constitutional: Awake, Well-developed, well-nourished, Alert, No distress, Non-toxic appearing Other Gen/Cons comments:: Breathes comfortably, speaks clearly, but pt is uncooperative. Head: Atraumatic (except an approx. 1.5 cm transverse superficial laceration at chin. No active bleeding, ecchymosis or swellling. No exudate. No bony tapering or gross deformity detected.) Eyes: Lids, conjuctiva normal, PERRL, EOMI Skin: Well hydrated, No lymphadenopathy ENMT: External ears, nose nl, Nasal exam nl, Lips, teeth, gums nl, Oropharynx nl Other ENMT comments:: Pt has normal movements of both upper and lower jaws. Neck: Nontender, Full ROM w/o pain, No JVD, No nuchal rigidity, No mass, No stridor Respiratory: Nl effort/Exclusion, Clear to Auscultation, No Wheeze/Rhonchi/Rales Cardio Vascular: RRR, No murmur, gallop, rubs GI: No tenderness/rebounding/guarding, No organomegaly, No hernia, Normal BS's, Nondistended, No mass/bruits Other GI comments:: Abdomen is soft. : No CVA tenderness Extremities: No tenderness or effusion, Full ROM, No edema, Normal digits & nails Other Extremities comments:: Both hips and knees: Nontender. No abnormal findings. No leg length discrepancy in the lower extremities. Other Neuro/Psych comments:: Alert. Spontaneous movements noticed in all 4 extremities. Pt does not cooperate for full neurological exam. Misc: normal gait, Normal back, No paraspinal tenderness Labs/Radiology/EKG Results - Lab Results Results: Laboratory Tests 03/31/17 03/31/17 03/31/17 18:55 18:55 18:55 WBC 9.9 D RBC 3.31 L Hgb 10.9 L Hct 32.4 L MCV 97.8 MCH 32.8 H MCHC Differential 33.5 RDW 12.0 Plt Count 274 MPV 7.1 Neutrophils % 84.3 H Lymphocytes % 10.1 L Monocytes % 4.9 Eosinophils % 0.3 Basophils % 0.4 PT 9.4 L INR 0.90 PTT (Actin FS) 24.1 L Sodium 138 Potassium 4.2 Chloride 105 Carbon Dioxide 27.8 Anion Gap 9.4 BUN 25 Creatinine 0.9 Est GFR ( Amer) > 60.0 Est GFR (Non-Af Amer) > 60.0 BUN/Creatinine Ratio 27.8 Glucose 110 H Calcium 10.0 Total Bilirubin 0.3 AST 28 ALT 15 Alkaline Phosphatase 100 Creatine Kinase 174 Troponin I Total Protein 7.4 Albumin 4.3 Globulin 3.1 Albumin/Globulin Ratio 1.4 03/31/17 18:55 WBC RBC Hgb Hct MCV MCH MCHC Differential RDW Plt Count MPV Neutrophils % Lymphocytes % Monocytes % Eosinophils % Basophils % PT INR PTT (Actin FS) Sodium Potassium Chloride Carbon Dioxide Anion Gap BUN Creatinine Est GFR ( Amer) Est GFR (Non-Af Amer) BUN/Creatinine Ratio Glucose Calcium Total Bilirubin AST ALT Alkaline Phosphatase Creatine Kinase Troponin I 0.02 Total Protein Albumin Globulin Albumin/Globulin Ratio Urinalysis is pending. - EKG Interpretations EKG Time:: 19:02 Rate & Rhythm: NSR with VR 84 Comments:: LAE, NSSTT changes. Assessment Laceration Type:: Simple ED Septic Shock - . Is Septic Shock (SBP<90, OR Lactate>4 mmol\L) present?: No Reassessment (Disposition) - Reassessment Reassessment:: 1950 Pt remains stable. No new findings. Chin laceration repair was done after wound was cleansed with betadine and well irrigated with normal saline solution. Wound was well approximated with Dermabond. Pt tolerated the procedure well without immediate complication. Laceration wound length is approx. 1.5 cm. No immediate complication. 2042 Case was discussed with Dr. Doty with pertinent H & P, EKG, and available lab findings reviewed. Pt is to be admitted to Tele[facility] for observation under his care. Reassessment Condition:: Improved - Diagnosis Diagnosis:: s/p fall with resulted superficial chin laceration, s/p repair with Dermabond. Dementia with Alzheimer's Dz. Anemia, stable. - Patient Disposition Admitted to:: Telemetry Admitting Medical Physician:: Augustus Doty Time:: 20:45 Condition at Disposition:: Stable, Improved
[2017-03-31 19:02] LABS: % BASOPHILS 0.4 % (0.0-2.0); % EOSINOPHILS 0.3 % (0.0-5.0); % LYMPHOCYTES 10.1 % (20.0-50.0); % MONOCYTES 4.9 % (2.0-10.0); % NEUTROPHILS 84.3 % (40.0-80.0); HEMATOCRIT 32.4 % (35.0-45.0); HEMOGLOBIN 10.9 gm/dL (11.7-15.5); MEAN CELL VOLUME 97.8 fl (81-100); MEAN CORPUSCULAR HEMOGLOBIN 32.8 pg (27.0-31.0); MEAN CORPUSCULAR HGB CONC 33.5 pg (28.0-36.0); MEAN PLATELET VOLUME 7.1 fl; NEUTROPHILE ABSOLUTE 8.4 Th/cmm (1.8-8.0); PLATELET COUNT 274 Th/cmm (150-400); RED BLOOD COUNT 3.31 Mil/cmm (3.80-5.10)
[2017-03-31 19:08] LABS: WHITE BLOOD COUNT 9.9 Th/cmm (4.8-10.8)
[2017-03-31 19:14] LABS: INR 0.9 (0.5-1.4); PROTHROMBIN TIME (TEST) 9.4 SECONDS (9.5-11.5)
[2017-03-31 19:17] LABS: ALB/GLOB RATIO 1.4 (1.0-1.8); ALKALINE PHOSPHATASE 100 U/L (34-104); ANION GAP 9.4 (7.0-16.0); BILIRUBIN,TOTAL 0.3 mg/dL (0.3-1.0); BUN - UREA NITROGEN 25 mg/dL (7-25); BUN/CREATININE RATIO 27.8; CARBON DIOXIDE 27.8 mEq/L (21.0-31.0); CHLORIDE 105 mEq/L (98-107); CREATININE - SERUM 0.9 mg/dL (0.6-1.2); GLUCOSE 110 mg/dL (70-105); POTASSIUM SERUM 4.2 mEq/L (3.5-5.1); SGOT 28 U/L (13-39); SGPT/ALT 15 U/L (7-52); SODIUM SERUM 138 mEq/L (136-145)
[2017-03-31 19:19] LABS: TROP I 0.02 ng/mL (0.01-0.05)
[2017-03-31] MEDS ORDERED: Sulfamethoxazole/TMP 800/160mg Tab PO ONE (19:56)
[2017-03-31 20:12] LABS: VALPROIC ACID < 10.0 ug/mL (50.0-100.0)
[2017-03-31] MEDS ORDERED: Sulfamethoxazole/TMP 800/160mg Tab ONE (20:13)
[2017-03-31] MEDS ORDERED: Ipratropium Neb 0.5 mg/2.5 mL UD IH PRN (22:51)
[2017-03-31] MEDS ORDERED: Maalox 30 mL Cup PO PRN (22:51)
[2017-03-31] MEDS ORDERED: guaiFENesin 200 MG/10 ML UDC PO PRN (22:51)
[2017-03-31] MEDS ORDERED: Albuterol Nebulizer 2.5mg/3mL HHN PRN (22:51)
[2017-03-31] MEDS: D5-0.9%NS 1,000 ML IV SCH (23:31)
[2017-04-01] MEDS: Multivitamin w/ Minerals Tab PO SCH (08:35)
--- NOTE | 2017-04-01 14:58 | History & Physical ---
ADMIT DATE: 04/01/2017 CHIEF COMPLAINT: Status post fall per staff and ____ consciousness. 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 The patient was seen in the Emergency Room has a laceration, which was treated with Dermabond. The patient lethargic and unable to provide any meaningful history or review of systems. PAST MEDICAL HISTORY: As mentioned in history present illness. PAST SURGICAL HISTORY: Per previous interaction with her , no surgery in the past. ALLERGIES: No known drug allergies. MEDICATIONS: Depakote, multivitamin, Tylenol, and ____. FAMILY HISTORY: Noncontributory. SOCIAL HISTORY: The patient is from jail. 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 REVIEW OF SYSTEMS: This is limited secondary to the patient's current mental state. We will try to obtain more detailed review of systems at a later date by talking to family members, Sam ____, number [phone]. Also try to get information from nursing staff at [facility] at [phone]. PHYSICAL EXAMINATION: VITAL SIGNS: Blood pressure 100/50, respirations 18, pulse ____, temperature 99.1. GENERAL: Middle-aged female, appears older. NECK: Supple, no mass. HEENT: Bilateral temporal wasting. LUNGS: Equal breath sounds, few rhonchi. HEART: Regular rate and rhythm without appreciable murmurs. ABDOMEN: Soft and nontender. EXTREMITIES: Positive excoriations. Positive laceration on the chin area. NEUROLOGIC: Limited, unable to perform cranial, motor and sensory examination. LABORATORY DATA: Detailed in the laboratory ____ findings. WBC was 9.9, hemoglobin 10.9, platelets 274. Sodium ____, potassium 4.2, BUN 25, creatinine 0.9, blood sugar 110 and ____ less than 10. ASSESSMENT AND PLAN: Near syncope, chin laceration, status post fall, metabolic encephalopathy, dementia, anemia. We will continue with wound care. We will perform head CT to rule out any [place] or acute changes. We will refer the patient to Psychiatry. We will continue with current care. We will review the patient's labs and medications. [facility]# [id number]
[2017-04-01 17:17] LABS: URINE COLOR YELLOW
[2017-04-01 17:18] LABS: URINE BACTERIA NONE SEEN /hpf (NONE SEEN); URINE BILIRUBIN NEGATIVE (NEGATIVE); URINE BLOOD NEGATIVE (NEGATIVE); URINE EPITHELIAL CELLS NONE SEEN /lpf (FEW); URINE GLUCOSE (UA) NEGATIVE (NEGATIVE); URINE KETONE NEGATIVE (NEGATIVE); URINE PROTEIN NEGATIVE (NEGATIVE); URINE RBC NONE SEEN /hpf (0-5); URINE UROBILINOGEN 0.2 E.U./dL (0.2 - 1.0); URINE WBC NONE SEEN /hpf (0-5)
[2017-04-01] MEDS: D5-0.9%NS 1,000 ML IV SCH (17:52)
--- NOTE | 2017-04-02 03:21 | Admit Criteria Form ---
Admit Criteria Forms - Admit Criteria Diagnosis: TELEMETRY CARE Telemetry Admission Guidelines (Place 'X' for any and all applicable criteria): Admission to telemetry [A] may be indicated for ANY ONE of the following(1)(2)(3 )(4)(5): [ ]I. Cardiac disease, including ANY ONE of the following (9)(10)(11)(12)(13 ): [ ]a) Postacute NH [ ]b) Low-risk patients with ST-segment elevation NH who have undergone successful percutaneous coronary intervention [ ]c) Unstable angina [ ]d) Suspected NH (until it is ruled out) [ ]e) Post cardiac surgery (first 48 to 72 hours unless complications occur) [ ]f) Acute arrhythmias (including significant tachycardia or bradycardia) [B] [ ]g) Firing of an implantable cardioverter defibrillator [C] [ ]h) Suspected pacemaker or implantable cardioverter defibrillator malfunction (10) [ ]i) New administration or adjustment of an antiarrhythmic drug [D ] [ ]j) Child admitted for acute congestive heart failure [ ]j) Long QT syndrome [ ]k) Advanced heart block (eg, second-degree Mobitz type II, third- degree heart block) [ ]l) Acute myocarditis or pericarditis [ ]m) Short-term (ambulatory or inpatient) monitoring after a cardiac procedure as indicated by ANY ONE of the following [E]: [ ]i) Electrophysiologic studies [ ]ii) Percutaneous coronary intervention with stent placement [ ]iii) Pacemaker placement with cardiac conduction defect [ ]iv) Implantable cardiac defibrillator placement [ ]II. Drug overdose or poisoning with substance that causes arrhythmias or QT prolongation (eg, phenothiazines, sympathomimetic agents, cyclic antidepressants, digitalis, antiarrhythmic drugs)(15) [ ]III. Short-term (ambulatory or inpatient) monitoring after therapeutic or diagnostic procedure requiring conscious sedation or anesthesia (eg, endoscopy, elective cardioversion) [ ]IV. Acute cerebrovascular even[F](18) [ ]V. Massive blood transfusion (eg, at least 10 units of packed red blood cells in 24 hours) [ ]. Variceal bleeding after endoscopy, sclerotherapy, or IV vasopressin [ ]VII. Uncorrected electrolyte abnormalities associated with an increased risk of dangerous arrhythmia [G]; examples include [ ]a) Hyperkalemia with attributable ECG changes [ ]b) Potassium greater than 6.5 mmol/L (mEq/L) in a patient without history of chronic renal disease [ ]c) Prolonged QT attributed to hypokalemia, hypomagnesemia, or hypocalcemia [X]VIII.Unexplained syncope or other neurologic event suspected of being due to arrhythmia due to a finding that increases risk; examples include(19)(20)(21): [ ]a) High-risk ECG findings (eg, bifascicular block, bradycardia, abnormal QT interval, ventricular pre- excitation) [ ]b) History of previous syncope due to arrhythmia [ ]c) Abnormal ventricular function (eg, reduced ejection fraction ) [ ]d) Exertional or supine syncope [X]e) Concerning syncope characteristics (eg, sudden loss of consciousness without prodrome) [ ]f) Family history of sudden [ ]g) Use of arrhythmogenic medication [ ]h) Suspected cardiac ischemia [ ]i) Known channelopathy (eg, long QT syndrome, Brugada syndrome, or catecholaminergic paroxysmal ventricular tachycardia) [ ]j) Known structural heart disease (eg, hypertrophic cardiomyopathy , severe valvular disease) [ ]k) Palpitations preceding syncope The original [employer] content created by [employer] has been revised. The portions of the content which have been revised are identified through the use of italic text or in bold, and [employer] has neither reviewed nor approved the modified material. All other unmodified content is copyright [employer]. Please see references footnoted in the original [employer] edition 2016
[2017-04-02] MEDS: D5-0.9%NS 1,000 ML IV SCH ×2 (06:23→16:53)
[2017-04-02] MEDS: Multivitamin w/ Minerals Tab PO SCH (08:20)
--- NOTE | 2017-04-02 09:10 | Diagnostic Imaging Report ---
CT scan of the brain without intravenous contrast HISTORY: Headache, trauma Total DLP equals 649 CTDI equals 31.5 Axial sections were obtained from the base of the skull to the vertex. There is marked enlargement of ventricular system along with marked enlargement of cerebral sulci and subarachnoid cisterns reflecting relatively severe generalized atrophy. Hypodensity is seen through the supratentorial white matter regions without mass effect. The findings may be associated with chronic small vessel ischemic disease. No acute parenchymal abnormalities. No intracerebral hemorrhage. No mass effect or shift of midline structures. No extra-axial masses or abnormal fluid collections. [place] V vascular calcification noted in the region of the vertebral arteries at the base of the skull. IMPRESSION: 1. No acute abnormalities 2. Severe generalized cerebral atrophy 3. Supratentorial white matter changes that may reflect chronic small vessel ischemic disease 4. Atherosclerotic vascular change
--- NOTE | 2017-04-02 13:35 | Internal Medicine Prog Note ---
Internal Medicine Subjective - Subjective Service Date: 04/02/17 (patient awake, alert, with sitter at bedside, refuses to speak per nursing staff patient tries to get out of bed, afebrile. ) Patient seen and examined:: with staff Patient is:: awake Per staff patient is:: no adverse event Internal Medicine Objective - Results Result Diagrams: 03/31/17 18:55 03/31/17 18:55 Recent Labs: Laboratory Last Values WBC 9.9 Th/cmm (4.8-10.8) D 03/31/17 18:55 RBC 3.31 Mil/cmm (3.80-5.10) L 03/31/17 18:55 Hgb 10.9 gm/dL (11.7-15.5) L 03/31/17 18:55 Hct 32.4 % (35.0-45.0) L 03/31/17 18:55 MCV 97.8 fl (81-100) 03/31/17 18:55 MCH 32.8 pg (27.0-31.0) H 03/31/17 18:55 MCHC Differential 33.5 pg (28.0-36.0) 03/31/17 18:55 RDW 12.0 % (11.5-20.0) 03/31/17 18:55 Plt Count 274 Th/cmm (150-400) 03/31/17 18:55 MPV 7.1 fl 03/31/17 18:55 Neutrophils % 84.3 % (40.0-80.0) H 03/31/17 18:55 Lymphocytes % 10.1 % (20.0-50.0) L 03/31/17 18:55 Monocytes % 4.9 % (2.0-10.0) 03/31/17 18:55 Eosinophils % 0.3 % (0.0-5.0) 03/31/17 18:55 Basophils % 0.4 % (0.0-2.0) 03/31/17 18:55 PT 9.4 SECONDS (9.5-11.5) L 17 18:55 INR 0.90 (0.5-1.4) 03/31/17 18:55 PTT (Actin FS) 24.1 SECONDS (26.0-38.0) L 03/31/17 18:55 Sodium 138 mEq/L (136-145) 03/31/17 18:55 Potassium 4.2 mEq/L (3.5-5.1) 03/31/17 18:55 Chloride 105 mEq/L (98-107) 03/31/17 18:55 Carbon Dioxide 27.8 mEq/L (21.0-31.0) 03/31/17 18:55 Anion Gap 9.4 (7.0-16.0) 03/31/17 18:55 BUN 25 mg/dL (7-25) 03/31/17 18:55 Creatinine 0.9 mg/dL (0.6-1.2) 03/31/17 18:55 Est GFR ( Amer) > 60.0 ml/min (>90) 03/31/17 18:55 Est GFR (Non-Af Amer) > 60.0 ml/min 03/31/17 18:55 BUN/Creatinine Ratio 27.8 03/31/17 18:55 Glucose 110 mg/dL (70-105) H 03/31/17 18:55 Calcium 10.0 mg/dL (8.6-10.3) 03/31/17 18:55 Total Bilirubin 0.3 mg/dL (0.3-1.0) 03/31/17 18:55 AST 28 U/L (13-39) 03/31/17 18:55 ALT 15 U/L (7-52) 03/31/17 18:55 Alkaline Phosphatase 100 U/L (34-104) 03/31/17 18:55 Creatine Kinase 174 U/L (30-223) 03/31/17 18:55 Troponin I 0.02 ng/mL (0.01-0.05) 03/31/17 18:55 Total Protein 7.4 gm/dL (6.0-8.3) 03/31/17 18:55 Albumin 4.3 gm/dL (3.7-5.3) 03/31/17 18:55 Globulin 3.1 gm/dL 03/31/17 18:55 Albumin/Globulin Ratio 1.4 (1.0-1.8) 03/31/17 18:55 Urine Source CLEAN C 04/01/17 16:55 Urine Color YELLOW 04/01/17 16:55 Urine Clarity CLEAR (CLEAR) 04/01/17 16:55 Urine pH 7.0 04/01/17 16:55 Ur Specific [place] 1.015 (1.005-1.030) 04/01/17 16:55 Urine Protein NEGATIVE mg/dL (NEGATIVE) 04/01/17 16:55 Urine Glucose (UA) NEGATIVE mg/dL (NEGATIVE) 04/01/17 16:55 Urine Ketones NEGATIVE mg/dL (NEGATIVE) 04/01/17 16:55 Urine Blood NEGATIVE (NEGATIVE) 04/01/17 16:55 Urine Nitrate NEGATIVE (NEGATIVE) 04/01/17 16:55 Urine Bilirubin NEGATIVE (NEGATIVE) 04/01/17 16:55 Urine Urobilinogen 0.2 E.U./dL (0.2 - 1.0) 04/01/17 16:55 Ur Leukocyte Esterase NEGATIVE (NEGATIVE) 04/01/17 16:55 Urine RBC NONE SEEN /hpf (0-5) 04/01/17 16:55 Urine WBC NONE SEEN /hpf (0-5) 04/01/17 16:55 Ur Epithelial Cells NONE SEEN /lpf (FEW) 04/01/17 16:55 Urine Bacteria NONE SEEN /hpf (NONE SEEN) 04/01/17 16:55 Valproic Acid < 10.0 ug/mL (50.0-100.0) L 03/31/17 18:55 - Physical Exam Vitals and I&O: Vital Signs Temp 98.2 F 04/02/17 08:00 Pulse 71 04/02/17 08:00 Resp 18 04/02/17 11:45 BP 103/54 04/02/17 08:00 Pulse Ox 96 04/02/17 08:00 Intake & Output 04/01/17 04/02/17 04/02/17 18:59 06:59 18:59 Intake Total 2200 1200 Balance 2200 1200 Weight (lbs) 125 lb 2 oz 125 lb 2 oz Intake: Intake, IV Amount 1000 1000 D5-0.9%Ns 1,000 ml @ 80 1000 1000 mls/hr IV .[id number] [facility] Rx #:[id number] Oral 1200 200 Other: # Voids 4 2 # Bowel Movements 1 Stool Characteristics Soft Soft Formed Formed Active Medications: Current Medications Acetaminophen (Tylenol) 650 mg PO Q4H PRN PRN Reason: Pain Or Fever above 101 Stop: 05/30/17 22:50 Last Admin: 04/01/17 20:07 Dose: 650 mg Al Hydrox/Mg Hydrox/Simethicone (Maalox) 30 ml PO Q6H PRN PRN Reason: Dyspepsia Stop: 05/30/17 22:50 Albuterol Sulfate (Albuterol 2.5mg/3ml Neb Ud) 2.5 mg HHN Q2HRT PRN PRN Reason: Shortness of Breath or Wheeze Stop: 05/30/17 22:50 Docusate Sodium (Colace) 100 mg PO DAILY [facility] Stop: 05/31/17 08:59 Last Admin: 04/02/17 08:20 Dose: 100 mg Guaifenesin (Robitussin) 200 mg PO Q4HR PRN PRN Reason: Cough or Congestion Stop: 05/30/17 22:50 Dextrose/Sodium Chloride (D5-0.9%Ns) 1,000 mls @ 80 mls/hr IV .[id number] [facility] Stop: 05/30/17 22:59 Last Admin: 04/02/17 06:23 Dose: 80 mls/hr Ipratropium [place] (Atrovent Neb 0.5mg/2.5ml) 0.5 mg IH Q2HRT PRN PRN Reason: Shortness of Breath or Wheeze Stop: 05/30/17 22:50 Levetiracetam (Keppra) 500 mg PO BID [facility] Stop: 05/31/17 08:59 Last Admin: 04/02/17 08:20 Dose: 500 mg Memantine (Namenda) 10 mg PO BID [facility] Stop: 05/31/17 08:59 Last Admin: 04/02/17 08:20 Dose: 10 mg Ondansetron HCl (Zofran) 4 mg IV Q8H PRN PRN Reason: Nausea / Vomiting Stop: 05/30/17 22:50 Quetiapine Fumarate (Seroquel) 50 mg PO TID [facility] PRN Reason: Protocol Stop: 05/31/17 08:59 Last Admin: 04/02/17 08:20 Dose: 50 mg Valproate Sodium (Depakene) 500 mg PO Q12H [facility] PRN Reason: Protocol Stop: 05/30/17 22:59 Last Admin: 04/02/17 11:21 Dose: 500 mg General: alert HEENT: NC/AT, PERRLA Neck: Supple Lungs: CTAB Cardiovascular: RRR, Normal S1, Normal S2, without murmur Abdomen: soft non-tender, non-distended, positive bowel sound Extremities: clear Neurological: no change - Procedures Procedures: Procedures Procedure Code Date REPAIR FACE, EXTERNAL APPROACH [id number] 03/31/17 RPR F/E/E/N/L/M 2.5 CM/< 60075 03/31/17 Internal Medicine Assmt/Plan - Assessment Assessment: 1. near syncope 2. chin laceration s/p fall 3. metabolic encephalopathy 4. dementia 5. anemia - Plan Plan: fall precautions monitor h/h cbc/bmp in am continue current plan of care
[2017-04-02] MEDS ORDERED: Haloperidol Lactate 5 mg/mL 1mL Vial IM ONE (13:50)
--- NOTE | 2017-04-02 20:21 | Consultation ---
DATE OF CONSULTATION: 04/02/2017 HISTORY OF PRESENT ILLNESS: The patient was seen, chart reviewed, and discussed with staff. The patient is a 56-year-old female with a history of schizoaffective disorder and dementia, Alzheimer's type, known to myself from prior treatment, has been agitated, confused, having episodes of yelling. The patient is taking her medications for the most part. Her insight is very poor. She is a poor historian. PAST PSYCHIATRIC HISTORY: Dementia and psychosis. PAST MEDICAL HISTORY: As per Dr. Doty. PSYCHOSOCIAL HISTORY: The patient resides at a prison. She requires complete care. The patient is . 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 MENTAL STATUS EXAMINATION: The patient is disorganized, oriented to person, not oriented to time or place. The patient has been responding to internal stimuli. Thought process is disorganized. The patient is highly paranoid, easily agitated. ASSESSMENT: Schizoaffective disorder versus psychosis, not otherwise specified, and dementia, Alzheimer's type. We will increase Seroquel to 75 mg p.o. t.i.d. If there are no side effects, then increase to 100 three times a day. Continue supportive measures. Monitor mood closely. Continue Depakote 500 mg p.o. b.i.d. Thank you for the consultation. JOB# [id number]
[2017-04-03] MEDS: D5-0.9%NS 1,000 ML IV SCH (05:12)
[2017-04-03 05:57] LABS: % BASOPHILS 0.1 % (0.0-2.0); % LYMPHOCYTES 31.6 % (20.0-50.0); % MONOCYTES 7.4 % (2.0-10.0); % NEUTROPHILS 56.9 % (40.0-80.0); HEMATOCRIT 31.9 % (35.0-45.0); HEMOGLOBIN 10.9 gm/dL (11.7-15.5); MEAN CELL VOLUME 98.4 fl (81-100); MEAN CORPUSCULAR HEMOGLOBIN 33.7 pg (27.0-31.0); MEAN CORPUSCULAR HGB CONC 34.3 pg (28.0-36.0); MEAN PLATELET VOLUME 7.6 fl; NEUTROPHILE ABSOLUTE 2.7 Th/cmm (1.8-8.0); PLATELET COUNT 233 Th/cmm (150-400); RED BLOOD COUNT 3.24 Mil/cmm (3.80-5.10); RED CELL DISTRIBUTION WIDTH 12.3 % (11.5-20.0)
[2017-04-03 06:02] LABS: WHITE BLOOD COUNT 4.7 Th/cmm (4.8-10.8)
[2017-04-03 06:06] LABS: ANION GAP 6.3 (7.0-16.0); BUN - UREA NITROGEN 12 mg/dL (7-25); BUN/CREATININE RATIO 17.1; CALCIUM SERUM 9.1 mg/dL (8.6-10.3); CARBON DIOXIDE 27.7 mEq/L (21.0-31.0); CHLORIDE 110 mEq/L (98-107); CREATININE - SERUM 0.7 mg/dL (0.6-1.2); GLUCOSE 84 mg/dL (70-105); SODIUM SERUM 140 mEq/L (136-145)
[2017-04-03] MEDS: Multivitamin w/ Minerals Tab PO SCH (08:25)
--- NOTE | 2017-04-03 12:48 | Internal Medicine Prog Note ---
Internal Medicine Subjective - Subjective Service Date: 04/03/17 (dc summary [id number]) Internal Medicine Objective - Results Result Diagrams: 04/03/17 05:09 04/03/17 05:09 Recent Labs: Laboratory Last Values WBC 4.7 Th/cmm (4.8-10.8) L D 04/03/17 05:09 RBC 3.24 Mil/cmm (3.80-5.10) L 04/03/17 05:09 Hgb 10.9 gm/dL (11.7-15.5) L 04/03/17 05:09 Hct 31.9 % (35.0-45.0) L 04/03/17 05:09 MCV 98.4 fl (81-100) 04/03/17 05:09 MCH 33.7 pg (27.0-31.0) H 04/03/17 05:09 MCHC Differential 34.3 pg (28.0-36.0) 04/03/17 05:09 RDW 12.3 % (11.5-20.0) 04/03/17 05:09 Plt Count 233 Th/cmm (150-400) 04/03/17 05:09 MPV 7.6 fl 04/03/17 05:09 Neutrophils % 56.9 % (40.0-80.0) 04/03/17 05:09 Lymphocytes % 31.6 % (20.0-50.0) 04/03/17 05:09 Monocytes % 7.4 % (2.0-10.0) 04/03/17 05:09 Eosinophils % 4.0 % (0.0-5.0) 04/03/17 05:09 Basophils % 0.1 % (0.0-2.0) 04/03/17 05:09 PT 9.4 SECONDS (9.5-11.5) L 03/31/17 18:55 INR 0.90 (0.5-1.4) 03/31/17 18:55 PTT (Actin FS) 24.1 SECONDS (26.0-38.0) L 03/31/17 18:55 Sodium 140 mEq/L (136-145) 04/03/17 05:09 Potassium 4.0 mEq/L (3.5-5.1) 04/03/17 05:09 Chloride 110 mEq/L (98-107) H 04/03/17 05:09 Carbon Dioxide 27.7 mEq/L (21.0-31.0) 04/03/17 05:09 Anion Gap 6.3 (7.0-16.0) L 04/03/17 05:09 BUN 12 mg/dL (7-25) 04/03/17 05:09 Creatinine 0.7 mg/dL (0.6-1.2) 04/03/17 05:09 Est GFR ( Amer) > 60.0 ml/min (>90) 04/03/17 05:09 Est GFR (Non-Af Amer) > 60.0 ml/min 04/03/17 05:09 BUN/Creatinine Ratio 17.1 04/03/17 05:09 Glucose 84 mg/dL (70-105) 04/03/17 05:09 Calcium 9.1 mg/dL (8.6-10.3) 04/03/17 05:09 Total Bilirubin 0.3 mg/dL (0.3-1.0) 03/31/17 18:55 AST 28 U/L (13-39) 03/31/17 18:55 ALT 15 U/L (7-52) 03/31/17 18:55 Alkaline Phosphatase 100 U/L (34-104) 03/31/17 18:55 Creatine Kinase 174 U/L (30-223) 03/31/17 18:55 Troponin I 0.02 ng/mL (0.01-0.05) 03/31/17 18:55 Total Protein 7.4 gm/dL (6.0-8.3) 03/31/17 18:55 Albumin 4.3 gm/dL (3.7-5.3) 03/31/17 18:55 Globulin 3.1 gm/dL 03/31/17 18:55 Albumin/Globulin Ratio 1.4 (1.0-1.8) 03/31/17 18:55 Urine Source CLEAN C 04/01/17 16:55 Urine Color YELLOW 04/01/17 16:55 Urine Clarity CLEAR (CLEAR) 04/01/17 16:55 Urine pH 7.0 04/01/17 16:55 Ur Specific [place] 1.015 (1.005-1.030) 04/01/17 16:55 Urine Protein NEGATIVE mg/dL (NEGATIVE) 04/01/17 16:55 Urine Glucose (UA) NEGATIVE mg/dL (NEGATIVE) 04/01/17 16:55 Urine Ketones NEGATIVE mg/dL (NEGATIVE) 04/01/17 16:55 Urine Blood NEGATIVE (NEGATIVE) 04/01/17 16:55 Urine Nitrate NEGATIVE (NEGATIVE) 04/01/17 16:55 Urine Bilirubin NEGATIVE (NEGATIVE) 04/01/17 16:55 Urine Urobilinogen 0.2 E.U./dL (0.2 - 1.0) 04/01/17 16:55 Ur Leukocyte Esterase NEGATIVE (NEGATIVE) 04/01/17 16:55 Urine RBC NONE SEEN /hpf (0-5) 04/01/17 16:55 Urine WBC NONE SEEN /hpf (0-5) 04/01/17 16:55 Ur Epithelial Cells NONE SEEN /lpf (FEW) 04/01/17 16:55 Urine Bacteria NONE SEEN /hpf (NONE SEEN) 04/01/17 16:55 Valproic Acid < 10.0 ug/mL (50.0-100.0) L 03/31/17 18:55 - Physical Exam Vitals and I&O: Vital Signs Temp 97.2 F 04/03/17 10:55 Pulse 75 04/03/17 10:55 Resp 18 04/03/17 10:55 BP 125/75 04/03/17 10:55 Pulse Ox 97 04/03/17 10:55 Intake & Output 04/02/17 04/03/17 04/03/17 18:59 06:59 18:59 Intake Total 1690 1385.333 Balance 1690 1385.333 Weight (lbs) 124 lb 8 oz 124 lb Intake: Intake, IV Amount 840 985.333 D5-0.9%Ns 1,000 ml @ 80 840 985.333 mls/hr IV .[id number] [facility] Rx #:[id number] Oral 850 400 Other: # Voids 4 2 # Bowel Movements 0 0 Stool Characteristics Soft Formed Active Medications: Current Medications Acetaminophen (Tylenol) 650 mg PO Q4H PRN PRN Reason: Pain Or Fever above 101 Stop: 05/30/17 22:50 Last Admin: 04/01/17 20:07 Dose: 650 mg Al Hydrox/Mg Hydrox/Simethicone (Maalox) 30 ml PO Q6H PRN PRN Reason: Dyspepsia Stop: 05/30/17 22:50 Albuterol Sulfate (Albuterol 2.5mg/3ml Neb Ud) 2.5 mg HHN Q2HRT PRN PRN Reason: Shortness of Breath or Wheeze Stop: 05/30/17 22:50 Docusate Sodium (Colace) 100 mg PO DAILY [facility] Stop: 05/31/17 08:59 Last Admin: 04/03/17 08:25 Dose: 100 mg Guaifenesin (Robitussin) 200 mg PO Q4HR PRN PRN Reason: Cough or Congestion Stop: 05/30/17 22:50 Dextrose/Sodium Chloride (D5-0.9%Ns) 1,000 mls @ 80 mls/hr IV .[id number] [facility] Stop: 05/30/17 22:59 Last Admin: 04/03/17 05:12 Dose: 80 mls/hr Ipratropium [place] (Atrovent Neb 0.5mg/2.5ml) 0.5 mg IH Q2HRT PRN PRN Reason: Shortness of Breath or Wheeze Stop: 05/30/17 22:50 Levetiracetam (Keppra) 500 mg PO BID [facility] Stop: 05/31/17 08:59 Last Admin: 04/03/17 08:25 Dose: 500 mg Memantine (Namenda) 10 mg PO BID [facility] Stop: 05/31/17 08:59 Last Admin: 04/03/17 08:30 Dose: 10 mg Ondansetron HCl (Zofran) 4 mg IV Q8H PRN PRN Reason: Nausea / Vomiting Stop: 05/30/17 22:50 Quetiapine Fumarate (Seroquel) 75 mg PO TID [facility] PRN Reason: Protocol Stop: 06/01/17 14:59 Last Admin: 04/03/17 08:30 Dose: 75 mg Valproate Sodium (Depakene) 500 mg PO Q12H [facility] PRN Reason: Protocol Stop: 05/30/17 22:59 Last Admin: 04/03/17 11:46 Dose: 500 mg - Procedures Procedures: Procedures Procedure Code Date REPAIR FACE, EXTERNAL APPROACH [id number] 03/31/17 RPR F/E/E/N/L/M 2.5 CM/< 81641 03/31/17 Internal Medicine Assmt/Plan - Assessment Assessment: 1. near syncope 2. chin laceration s/p fall 3. metabolic encephalopathy 4. dementia 5. anemia - Plan Plan: fall precautions monitor h/h cbc/bmp in am continue current plan of care
--- NOTE | 2017-04-03 19:27 | Discharge Summary ---
DATE OF DISCHARGE: 04/03/[address] Augustus Doty. ADMITTING DIAGNOSES: Near syncope, chin laceration, status post fall, metabolic encephalopathy, dementia, and anemia. DISCHARGE DIAGNOSES: Chin laceration, status post fall, metabolic encephalopathy, dementia, and anemia. PHYSICAL EXAMINATION: GENERAL: The patient is awake with some confusion in no acute distress. VITAL SIGNS: Temperature 97.2, heart rate 75, blood pressure 125/75, respirations 18, and O2 of 97. HEENT: Head is normocephalic and atraumatic. NECK: Supple. No mass. LUNGS: Clear bilaterally. CARDIOVASCULAR: Regular rhythm. ABDOMEN: Soft and nontender. HOSPITAL COURSE: During the hospital stay, the patient was admitted to the telemetry unit. The patient had a CT of the head done and the impression is no acute abnormalities, severe generalized cerebral atrophy, supratentorial white matter changes that may reflect chronic small vessel ischemic changes, atherosclerotic vascular change. The patient had a psych consult with Dr. Childers. His plan of care for this patient was to continue the patient on Depakote 500 mg and increase her 75 mg p.o. t.i.d. The patient had a sitter at bedside for safety. The patient's laboratory results were being monitored as well. No abnormalities. All within normal limits. For this reason, the patient was stable for discharge. CONDITION UPON DISCHARGE: Fair. DISPOSITION: The patient is going back to residential. [facility]# [id number]
== END 2017-04-03 14:30 | DRG 579 ==
LOC: ER 18:37 → TELE 21:37
PROVIDERS: ADMIT Internal Medicine; ATTEND Internal Medicine
PROC: 0WQ2XZZ Repair Face, External Approach (ICD-10-PCS; principal; 2017-03-31)
DX: S01.81XA Laceration without foreign body of other part of head, initial encounter (principal); G93.41 Metabolic encephalopathy; F25.9 Schizoaffective disorder, unspecified; G30.9 Alzheimer's disease, unspecified; D64.9 Anemia, unspecified; F02.80 Dementia in other diseases classified elsewhere, unspecified severity, without behavioral disturbance, psychotic disturbance, mood disturbance, and anxiety; F31.9 Bipolar disorder, unspecified; W19.XXXA Unspecified fall, initial encounter
CPT/HCPCS: 12011; G0168; 36415-UA; 70450-TC; 80048-TC; 80053-TC; 80164-TC; 81001-TC; 82550-TC; 84484-TC; 85025-TC; 85610-TC; 93005; 94760; J1200; J1630; J7042; Z7610

== ENCOUNTER 2017-08-17 09:39 | Emergency (ER) | payer MEDICAID, OTHER ==
--- NOTE | 2017-08-17 09:52 | ED Physician Chart ---
ED Chief Complaint/HPI - Patient Information Date Seen:: 08/17/17 Time Seen:: 09:52 Chief Complaint:: ELBOW INJURY AT ABOUT 8 AM History of Present Illness:: This 57-year-old female was brought to the emergency department by EMS from her nursing facility. The patient has severe dementia and Alzheimer's disease and is unable even to provide her name. History was obtained from the EMS personnel who transported the patient. Nursing personnel at the facility said the patient had banged her left elbow against a wall and was complaining of pain. The patient intermittently follows simple commands but for the most part ignores them. She is unable to provide her name or any history regarding the present illness. She does not appear to be in any pain but there is mild tenderness on palpation over the left olecranon. Asked any question the patient laughs. Allergies:: Allergies Allergy/AdvReac Type Severity Reaction Status Date / Time No Known Allergies Allergy Verified 03/07/17 20:37 Vitals:: Vital Signs - 8 hr 08/17/17 09:45 Temp 98.5 F HR 83 RR 16 BP 110/75 O2 Sat % 97 Historian:: EMS, Medical Records, Other (I reviewed the medical record which accompanied the patient regarding medical disorders as well as psychiatric.) Review:: Nurse's Note Reviewed, EMS run form Reviewed, Transfer documents Reviewed, Patient unable to respond (I requested nurse Otis to amend his notes to reflect patient has 0 orientation.) ED Review of Systems - Review of Systems General/Constitutional: Other (unable to obtain a review of systems due to severe mental deficiency.) ED Past Medical History - Past Medical History Past Medical History: Dementia, Other (Alzheimer's disease, schizophrenia, metabolic encephalopathy. Patient has anemia and bipolar disorder. Also has a history of seizures. There is no history of hypertension, diabetes, or heart disease.) Family History: Other (no history of heart disease, cancer, diabetes or DVT/PE.) Social History: Non Smoker, No Alcohol, No Drug Use, Care Facility Employment:: Ur status as nonsmoker, no alcohol or drug abuse, was based on her severe mental disability and inability to obtain those substances. Family Medical History - Family Member Mother History Unknown: Yes Ethnicity: Unknown Living Status: Unknown ED Physical Exam - Physical Examination General/Constitutional: Awake, Well-developed, well-nourished, Alert, No distress, Non-toxic appearing Head: Atraumatic Eyes: Lids, conjuctiva normal, PERRL Other Eyes comments:: Patient uncooperative with EOM testing. Skin: No rash, No skin lesions, No ecchymosis, Well hydrated, No lymphadenopathy ENMT: External ears, nose nl, Nasal exam nl, Lips, teeth, gums nl, Oropharynx nl , Tonsils nl Neck: Nontender, No JVD, No nuchal rigidity, No mass, No stridor Respiratory: Nl effort/Exclusion, Clear to Auscultation, No Wheeze/Rhonchi/Rales Cardio Vascular: RRR, No murmur, gallop, rubs, NL S1 S2 Other Cardio Vascular comments:: Good distal pulses in all 4 extremities. Peripheral edema. GI: No tenderness/rebounding/guarding, No organomegaly, No hernia, Normal BS's, Nondistended, No mass/bruits, No McBurney tenderness Other GI comments:: Rectal exam was deferred at my discretion. : No CVA tenderness Extremities: Full ROM, No edema Other Extremities comments:: The patient has normal movement in all 4 extremities. 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 Patient has a subungual hematoma of the right thumbnail is tender to pressure. There is mild tenderness on palpation over the olecranon of the left upper extremity. Full passive and active range of motion of the left elbow. Neuro/Psych: Normal sensory exam, Normal motor strength Other Neuro/Psych comments:: Alert but not oriented to her name, situation, or time. Patient is able to ambulate with minimal assistance from nursing personnel. Is able to bear weight but needs help with her balance. Misc: Normal back, No paraspinal tenderness ED Labs/Radiology/EKG Results - Lab Results Results: Laboratory Tests 08/17/17 08/17/17 10:12 10:12 WBC 10.8 D RBC 4.05 Hgb 13.1 D Hct 38.7 L D MCV 95.5 MCH 32.3 H MCHC Differential 33.8 RDW 12.4 Plt Count 252 MPV 8.0 Neutrophils % 83.8 H Lymphocytes % 10.8 L Monocytes % 4.2 Eosinophils % 0.4 Basophils % 0.8 Sodium 134 L Potassium 4.3 Chloride 100 Carbon Dioxide 31.5 H Anion Gap 6.8 L BUN 20 Creatinine 0.8 Est GFR ( Amer) > 60.0 Est GFR (Non-Af Amer) > 60.0 BUN/Creatinine Ratio 25.0 Glucose 108 H Calcium 9.2 The CBC is unremarkable with no leukocytosis and no anemia. Chemistry show a mild hyponatremia with a sodium of 134. Renal function studies were normal and there were no other abnormalities of electrolytes. Impression: Mild hyponatremia of no clinical significance. - Radiology Results Results: Two-view portable x-ray of the left elbow: No fractures of the olecranon or the distal humerus. No radial opaque foreign bodies. No fat pad sign. Impression : No acute traumatic findings. ED Assessment - Assessment General Assessment: CASE SUMMARY: This 57-year-old female was brought to the emergency department by EMS for evaluation of a left elbow injury. The story was that it had been injured when they came into contact with a wall. No further information was available from the EMS transporters. On physical examination there were no abrasions or lacerations over the elbow. There was mild swelling in the region and tenderness to palpation. Patient had a full range of motion of the left elbow. Two-view lateral and AP x-rays of the elbow were negative for any acute traumatic findings. Incidental finding of a subungual hematoma of the right thumb nail. The case was discussed with Dr. Doty, the patient's primary care physician, and we were in agreement that the patient was stable for return to her nursing facility. Discharged in stable condition. MDM INJURY TO LEFT ELBOW, DDX: NOT olecranon fracture based on negative x-ray study. NOT RADIAL HEAD FRACTURE BASED ON NEGATIVE X-RAY FINDING. NOT olecranon bursitis based on physical examination. NOT dislocation of the elbow based on x-ray and physical examination. ED Septic Shock - . Is Septic Shock (SBP<90, OR Lactate>4 mmol\L) present?: No - <6hrs of presentation: Vital Signs: Vital Signs - 8 hr 08/17/17 09:45 Temp 98.5 F HR 83 RR 16 BP 110/75 O2 Sat % 97 ED Reassessment (Disposition) - Reassessment Reassessment Condition:: Unchanged - Diagnosis Diagnosis:: CONTUSION LEFT ELBOW. SEVERE DEMENTIA. - Aftercare/Follow up Instructions Notes:: X-ray studies were not discussed with the patient due to her severe mental impairment. - Patient Disposition Discharge/Transfer:: Correction Care - SNF ED Discharge Plan - Patient Disposition Instructions: Elbow Contusion, [id number]
[2017-08-17 10:20] LABS: % BASOPHILS 0.8 % (0.0-2.0); % EOSINOPHILS 0.4 % (0.0-5.0); % LYMPHOCYTES 10.8 % (20.0-50.0); % MONOCYTES 4.2 % (2.0-10.0); % NEUTROPHILS 83.8 % (40.0-80.0); BASOPHILE ABSOLUTE 0.1 Th/cumm (0-0.2); LYMPHOCYTE ABSOLUTE 1.2 Th/cmm (1.5-3.0); MEAN CELL VOLUME 95.5 fl (81-100); MEAN CORPUSCULAR HEMOGLOBIN 32.3 pg (27.0-31.0); MEAN CORPUSCULAR HGB CONC 33.8 pg (28.0-36.0); MONOCYTE ABSOLUTE 0.5 Th/cmm (0.3-1.0); PLATELET COUNT 252 Th/cmm (150-400); RED BLOOD COUNT 4.05 Mil/cmm (3.80-5.10); RED CELL DISTRIBUTION WIDTH 12.4 % (11.5-20.0)
[2017-08-17 10:21] LABS: HEMATOCRIT 38.7 % (41.0-60); HEMOGLOBIN 13.1 gm/dL (12-16); WHITE BLOOD COUNT 10.8 Th/cmm (4.8-10.8)
[2017-08-17 10:34] LABS: ANION GAP 6.8 (7.0-16.0); BUN - UREA NITROGEN 20 mg/dL (7-25); CALCIUM SERUM 9.2 mg/dL (8.6-10.3); CARBON DIOXIDE 31.5 mEq/L (21.0-31.0); CHLORIDE 100 mEq/L (98-107); CREATININE - SERUM 0.8 mg/dL (0.6-1.2); GFR AFRICAN-AMERICAN > 60.0 ml/min (>90); GFR NON AFRICAN-AMERICAN > 60.0 ml/min; GLUCOSE 108 mg/dL (40-70); POTASSIUM SERUM 4.3 mEq/L (3.5-5.1); SODIUM SERUM 134 mEq/L (136-145)
--- NOTE | 2017-08-17 11:12 | Diagnostic Imaging Report ---
Left elbow 2 views Indication: Trauma Comparison: none Findings: Slight elevation of the anterior fat pad. No gross fractures identified. Small calcifications seen along the posterior olecranon region. Minimal soft tissue swelling olecranon region is noted. No dislocation. Impression: Slight elevation of anterior fat pad. Findings suggest a small elbow effusion. No obvious fracture is identified however an occult fracture cannot be completely excluded. Please correlate with clinical findings. Minimal soft tissue swelling of the olecranon region. In the setting of trauma, if clinical symptoms persist and there is continued concern for an occult fracture, follow up exams in 5-7 days is suggested.
== END 2017-08-17 11:55 ==
LOC: ER 09:39
DX: S50.02XA Contusion of left elbow, initial encounter (principal); F03.90 Unspecified dementia, unspecified severity, without behavioral disturbance, psychotic disturbance, mood disturbance, and anxiety; W22.01XA Walked into wall, initial encounter; Y93.89 Activity, other specified; Y92.89 Other specified places as the place of occurrence of the external cause; Y99.8 Other external cause status
CPT/HCPCS: 36415-UA; 73070-TC-LT; 80048-TC; 85025-TC

== ENCOUNTER 2017-11-14 03:56 | Inpatient (IN) | payer MEDICAID ==
[2017-11-14] MEDS ORDERED: cefTRIAXone 1 GM in Sodium Chloride 0.9% 50 ML IV ONE (04:14)
--- NOTE | 2017-11-14 04:20 | ED Physician Chart ---
ED Chief Complaint/HPI - Patient Information Date Seen:: 11/14/17 Time Seen:: 04:00 Chief Complaint:: Fall History of Present Illness:: onset x one hour of a S/P Fall and syncope; no report of LOC, ALOC, AMS, H/As, neck pain, C/P, SOB, Abd. Pain, A/N/V/D/C, fever, chills, or urinary s/s; last tetanus alexi: > 5 years; Allergies:: Allergies Allergy/AdvReac Type Severity Reaction Status Date / Time No Known Allergies Allergy Verified 03/07/17 20:37 Historian:: Patient, EMS Review:: Nurse's Note Reviewed, Old Chart Reviewed, EMS run form Reviewed ED Review of Systems - Review of Systems General/Constitutional: No fever, No chills, No weight loss, No weakness, No diaphoresis, No edema, No loss of appetite Skin: No skin lesions, No rash, No bruising Head: No headache, No light-headedness Eyes: No loss of vision, No pain, No diplopia ENT: No earache, No nasal drainage, No sore throat, No tinnitus Neck: No neck pain, No swelling, No thyromegaly, No stiffness, No mass noted Cardio Vascular: No chest pain, No palpitations, No PND, No orthopnea, No edema Pulmonary: No SOB, No cough, No sputum, No wheezing GI: No nausea, No vomiting, No diarrhea, No pain, No melena, No hematochezia, No constipation, No hematemesis G/U: No dysuria, No frequency, No hematuria, No nacturia Ip Network Architect: No vaginal discharge, No abnormal vaginal bleed, No contraction Musculoskeletal: No bone or joint pain, No back pain, No muscle pain Endocrine: No polyuria, No polydipsia Psychiatric: Prior psych history, Depression, Anxiety, No suicidal ideation, No homicidal ideation, Auditory hallucination, No visual hallucination Hematopoietic: No bruising, No lymphadenopathy Allergic/Immuno: No urticaria, No angioedema Neurological: No syncope, No focal symptoms, No weakness, No paresthesia, No headache, No seizure, No dizziness, Confusion, No vertigo ED Past Medical History - Past Medical History Obtainable: Yes Past Medical History: HTN, Dyslipidemia, Seizures, Dementia, Other (Anemia; Alzheimer's Disease; Metabolic Encephalopathy) Family History: Diabetes Melitus, HTN Social History: Non Smoker, No Alcohol, No Drug Use, Single, Care Facility Surgical History: None Psychiatricy History: Bipolar, Dementia Medication: Reviewed Family Medical History - Family Member Mother History Unknown: Yes Ethnicity: Unknown Living Status: Unknown ED Physical Exam - Physical Examination General/Constitutional: Awake, Well-developed, well-nourished, Alert, No distress, GCS 15, Non-toxic appearing, Ambulatory Other Head comments:: 3.0cm occipital scalp laceration Eyes: Lids, conjuctiva normal, PERRL, EOMI Skin: Nl inspection, No rash, No skin lesions, No ecchymosis, Well hydrated, No lymphadenopathy ENMT: External ears, nose nl, TM canals nl, Nasal exam nl, Lips, teeth, gums nl , Oropharynx nl, Tonsils nl Neck: Nontender, Full ROM w/o pain, No JVD, No nuchal rigidity, No bruit, No mass, No stridor Respiratory: Nl effort/Exclusion, Clear to Auscultation, No Wheeze/Rhonchi/Rales Cardio Vascular: RRR, No murmur, gallop, rubs, NL S1 S2, Carotid/Femoral/Distal pulses equal bilaterally GI: No tenderness/rebounding/guarding, No organomegaly, No hernia, Normal BS's, Nondistended, No mass/bruits, No McBurney tenderness : No CVA tenderness Extremities: No tenderness or effusion, Full ROM, normal strength in all extremities, No edema, Normal digits & nails Neuro/Psych: DTR's symmetric, Normal sensory exam, Normal motor strength, Judgement/insight normal, Mood normal, Normal gait, No focal deficits Other Neuro/Psych comments:: Disoriented and Confused Misc: Normal back, No paraspinal tenderness ED Labs/Radiology/EKG Results - Lab Results Comments:: WBC: 11.2 - Radiology Results Comments:: NAD - EKG Interpretations EKG Time:: 06:29 Rate & Rhythm: 85; NSR Comments:: non-specific st-t changes ED Assessment - Procedures Informed Consent: Procedure/risk/benefits explained by MD: Yes Location:: Occipital Scalp Laceration Type:: Simple Wound Length: 3 cm Prep/Irrigation:: Thorough Cleansing and Irrigation with betadine and saline Macey #: 6 Comments:: neosporin ointment and dressing Post Procedure/Splint Exam: No Active Bleeding, Full Range of Motion (good NV functions), Neuro/Vascular Exam (good NV functions) ED Septic Shock - . Is Septic Shock (SBP<90, OR Lactate>4 mmol\L) present?: No ED Reassessment (Disposition) - Reassessment Reassessment Condition:: Improved - Diagnosis Diagnosis:: Dx: 3.0cm Scalp Laceration; Alzheimer's Disease; Syncope; S/P Fall; Dementia; Metabolic Encephalopathy - Aftercare/Follow up Instructions Aftercare/Follow-Up Instructions:: Counseled pt regarding lab results/diagnosis & need follow up, Counseled pt & family regarding lab results/diagnosis & need follow up - Patient Disposition Discharge/Transfer:: Acute Care w/in this hosp Accepting Physician:: Dr. Doty Time Called:: 1846 Time Responded:: 05:50 Admitted to:: Telemetry Spoke to:: Dr. Doty Admitting Medical Physician:: Dr. Doty Condition at Disposition:: Stable, Improved
[2017-11-14 04:52] LABS: % BASOPHILS 0.6 % (0.0-2.0); % EOSINOPHILS 0.2 % (0.0-5.0); % LYMPHOCYTES 10.9 % (20.0-50.0); % MONOCYTES 6.4 % (2.0-10.0); % NEUTROPHILS 81.9 % (40.0-80.0); BASOPHILE ABSOLUTE 0.1 Th/cumm (0-0.2); HEMOGLOBIN 12.3 gm/dL (12-16); LYMPHOCYTE ABSOLUTE 1.2 Th/cmm (1.5-3.0); MEAN CELL VOLUME 97.3 fl (81-100); MEAN CORPUSCULAR HEMOGLOBIN 32.4 pg (27.0-31.0); MEAN CORPUSCULAR HGB CONC 33.3 pg (28.0-36.0); MEAN PLATELET VOLUME 8.4 fl; MONOCYTE ABSOLUTE 0.7 Th/cmm (0.3-1.0); NEUTROPHILE ABSOLUTE 9.2 Th/cmm (1.8-8.0); PLATELET COUNT 211 Th/cmm (150-400); RED BLOOD COUNT 3.81 Mil/cmm (3.80-5.10); RED CELL DISTRIBUTION WIDTH 12.3 % (11.5-20.0); WHITE BLOOD COUNT 11.2 Th/cmm (4.8-10.8)
[2017-11-14 05:13] LABS: INR 0.89 (0.5-1.4); PROTHROMBIN TIME (TEST) 9.2 SECONDS (9.5-11.5)
[2017-11-14 05:17] LABS: ALB/GLOB RATIO 1.6 (1.0-1.8); ALBUMIN 4.4 gm/dL (3.7-5.3); ALKALINE PHOSPHATASE 95 U/L (34-104); ANION GAP 13.8 (7.0-16.0); BILIRUBIN,TOTAL 0.4 mg/dL (0.3-1.0); BUN - UREA NITROGEN 27 mg/dL (7-25); CALCIUM SERUM 9.4 mg/dL (8.6-10.3); CARBON DIOXIDE 24.7 mEq/L (21.0-31.0); CHLORIDE 102 mEq/L (98-107); CHOLESTEROL 200 mg/dL (<200); CREATININE - SERUM 0.8 mg/dL (0.6-1.2); CREATININE KINASE 68 U/L (30-223); GFR AFRICAN-AMERICAN > 60.0 ml/min (>90); GFR NON AFRICAN-AMERICAN > 60.0 ml/min; GLUCOSE 101 mg/dL (70-105); HDL -HIGH DENSITY LIPOPROTEIN 93 mg/dL (23-92); POTASSIUM SERUM 4.5 mEq/L (3.5-5.1); SGOT 18 U/L (13-39); SGPT/ALT 11 U/L (7-52); SODIUM SERUM 136 mEq/L (136-145); TOTAL PROTEIN,SERUM 7.2 gm/dL (6.0-8.3); TRIGLYCERIDES 55 mg/dL (<150)
--- NOTE | 2017-11-14 07:47 | Diagnostic Imaging Report ---
Head CT without intravenous contrast Indication: Headache, trauma Comparison: None Technique: Axial images were obtained from the vertex to the skull base without IV contrast. Coronal reconstructions were made. Total DLP: 846, [id number] FINDINGS: Exam is markedly limited due to motion. Images of the brain obtained without contrast demonstrate no evidence of an acute hemorrhage. Atrophy is noted. The ventricles and basal cisterns are patent. No mass effect or midline shift. Assessment for skull fracture is limited due to motion however no gross skull fracture or evidence of gross soft tissue swelling. There is mucosal thickening of the paranasal sinuses. IMPRESSION: Limited exam due to motion. No evidence of gross hemorrhage. Atrophy.
[2017-11-14 11:28] VITALS: BP 137/70
--- NOTE | 2017-11-14 12:34 | Internal Medicine Prog Note ---
Internal Medicine Subjective - Subjective Service Date: 11/14/17 ([id number]) Internal Medicine Objective - Results Result Diagrams: 11/14/17 04:25 11/14/17 04:25 Recent Labs: Laboratory Last Values WBC 11.2 Th/cmm (4.8-10.8) H 11/14/17 04:25 RBC 3.81 Mil/cmm (3.80-5.10) 11/14/17 04:25 Hgb 12.3 gm/dL (12-16) 11/14/17 04:25 Hct 37.0 % (41.0-60) L 11/14/17 04:25 MCV 97.3 fl (81-100) 11/14/17 04:25 MCH 32.4 pg (27.0-31.0) H 11/14/17 04:25 MCHC Differential 33.3 pg (28.0-36.0) 11/14/17 04:25 RDW 12.3 % (11.5-20.0) 11/14/17 04:25 Plt Count 211 Th/cmm (150-400) 11/14/17 04:25 MPV 8.4 fl 11/14/17 04:25 Neutrophils % 81.9 % (40.0-80.0) H 11/14/17 04:25 Lymphocytes % 10.9 % (20.0-50.0) L 11/14/17 04:25 Monocytes % 6.4 % (2.0-10.0) 11/14/17 04:25 Eosinophils % 0.2 % (0.0-5.0) 11/14/17 04:25 Basophils % 0.6 % (0.0-2.0) 11/14/17 04:25 PT 9.2 SECONDS (9.5-11.5) L 11/14/17 04:25 INR 0.89 (0.5-1.4) 11/14/17 04:25 Sodium 136 mEq/L (136-145) 11/14/17 04:25 Potassium 4.5 mEq/L (3.5-5.1) 11/14/17 04:25 Chloride 102 mEq/L (98-107) 11/14/17 04:25 Carbon Dioxide 24.7 mEq/L (21.0-31.0) 11/14/17 04:25 Anion Gap 13.8 (7.0-16.0) 11/14/17 04:25 BUN 27 mg/dL (7-25) H 11/14/17 04:25 Creatinine 0.8 mg/dL (0.6-1.2) 11/14/17 04:25 Est GFR ( Amer) > 60.0 ml/min (>90) 11/14/17 04:25 Est GFR (Non-Af Amer) > 60.0 ml/min 11/14/17 04:25 BUN/Creatinine Ratio 33.8 11/14/17 04:25 Glucose 101 mg/dL (70-105) 11/14/17 04:25 Calcium 9.4 mg/dL (8.6-10.3) 11/14/17 04:25 Total Bilirubin 0.4 mg/dL (0.3-1.0) 11/14/17 04:25 AST 18 U/L (13-39) 11/14/17 04:25 ALT 11 U/L (7-52) 11/14/17 04:25 Alkaline Phosphatase 95 U/L (34-104) 11/14/17 04:25 Creatine Kinase 68 U/L (30-223) 11/14/17 04:25 Troponin I 0.01 ng/mL (0.01-0.05) 11/14/17 04:25 B-Natriuretic Peptide 35.6 pg/mL (5.0-100.0) 11/14/17 04:25 Total Protein 7.2 gm/dL (6.0-8.3) 11/14/17 04:25 Albumin 4.4 gm/dL (3.7-5.3) 11/14/17 04:25 Globulin 2.8 gm/dL 11/14/17 04:25 Albumin/Globulin Ratio 1.6 (1.0-1.8) 11/14/17 04:25 Triglycerides 55 mg/dL (<150) 11/14/17 04:25 Cholesterol 200 mg/dL (<200) 11/14/17 04:25 LDL Cholesterol Direct 84 mg/dL (75-193) 11/14/17 04:25 HDL Cholesterol 93 mg/dL (23-92) H 11/14/17 04:25 Serum , Qual NEGATIVE (NEGATIVE) 11/14/17 04:25 - Physical Exam Vitals and I&O: Vital Signs Temp 98.4 F 11/14/17 12:12 Pulse 77 11/14/17 12:12 Resp 14 11/14/17 12:12 BP 135/73 11/14/17 12:12 Pulse Ox 97 11/14/17 12:12 Intake & Output 11/13/17 11/14/17 11/14/17 18:59 06:59 18:59 Other: Stool Characteristics Formed Active Medications: Current Medications Benztropine Mesylate (Cogentin) 1 mg PO BID [facility] Stop: 01/13/18 16:59 Docusate Sodium (Colace) 100 mg PO DAILY [facility] Stop: 01/14/18 08:59 Levetiracetam (Keppra) 500 mg PO BID [facility] Stop: 01/13/18 16:59 Memantine (Namenda) 10 mg PO BID [facility] Stop: 01/13/18 16:59 Miscellaneous (Ferrous Gluconate [Ferrous Gluconate]) 1 tab PO DAILY JAGDEEP Stop: 01/14/18 08:59 Quetiapine Fumarate (Seroquel) 100 mg PO TID [facility] PRN Reason: Protocol Stop: 01/13/18 13:59 Valproate Sodium (Depakene) 500 mg PO Q12H [facility] PRN Reason: Protocol Stop: 01/13/18 12:29 - Procedures Procedures: Procedures Procedure Code Date REPAIR FACE, EXTERNAL APPROACH [id number] 03/31/17 RPR F/E/E/N/L/M 2.5 CM/< 44099 03/31/17
[2017-11-14] MEDS ORDERED: guaiFENesin 200 MG/10 ML UDC PO PRN (12:35)
[2017-11-14] MEDS: D5-0.9%NS 1,000 ML IV SCH (13:05)
[2017-11-14] MEDS: Albuterol Nebulizer 2.5mg/3mL HHN SCH ×2 (15:26→18:36)
[2017-11-14] MEDS: Ipratropium Neb 0.5 mg/2.5 mL UD HHN SCH (15:27)
--- NOTE | 2017-11-14 16:26 | History & Physical ---
ADMIT DATE: 11/14/2017 DICTATED FOR: Dr. Augustus Doty CHIEF COMPLAINT: Status post fall. HISTORY OF PRESENT ILLNESS: This is a 57-year-old female who is a resident of [facility]. I was called on this patient last night at 3 in the morning due to status post fall. According to charge nurse, the patient was walking to the restroom and she fell, hit her head against the chair and the patient sustained a laceration on the back of her head. In the ER, the patient had shanique. The patient did not have any dizziness or weakness per nursing staff. For further management, the patient is now admitted. PAST MEDICAL HISTORY: Hypertension, dyslipidemia, seizures, dementia, anemia, Alzheimer, metabolic encephalopathy. FAMILY HISTORY: Noncontributory. SOCIAL HISTORY: The patient is a senior care resident, requiring 24-hour nursing care. SURGICAL HISTORY: Unknown. MEDICATIONS: Please see medication sheet. REVIEW OF SYSTEMS: GENERAL: Unable to obtain due to the patient's mental status. PHYSICAL EXAMINATION: GENERAL: This is an elderly female, awake, not really interactive, in no apparent distress. VITAL SIGNS: Temperature 98.4, heart rate 77, blood pressure 135/72, respirations 14, O2 of 97%. HEENT: Head normocephalic, atraumatic. NECK: Supple. No mass. LUNGS: Clear bilaterally. ____. ABDOMEN: Soft, nontender. SKIN: The patient's back of the head is noted with shanique. LABORATORY RESULTS: WBC 11.2, H and H 12.3 and 37.0, platelet of 211. Sodium 136, potassium 4.5, chloride 102, BUN 27, creatinine 0.8. DIAGNOSTIC DATA: The patient had a CT of the head done and the impression is limited examination due to motion. No evidence of gross hemorrhage, atrophy. ASSESSMENT: 1. Syncope. 2. Status post fall. 3. Head laceration. 4. Hypertension. 5. Dyslipidemia. 6. Seizures. 7. Dementia. 8. Anemia. 9. Alzheimer disease. PLAN: The patient to be admitted to the ICU unit. We will get 1:1 sitter. Fall precautions will be initiated. We will get carotid ultrasound. We will get Neurology as well as Psychiatry on the case as well. We will keep the patient on IV fluids for hydration. We will continue to monitor this patient. [facility]# [id number]
[2017-11-14] MEDS: Benztropine 1 MG TAB PO SCH (16:31)
[2017-11-14 19:07] LABS: URINE MICROSCOPIC INDICATED? YES; URINE SOURCE CATH
[2017-11-14 19:09] LABS: URINE BILIRUBIN NEGATIVE (NEGATIVE); URINE BLOOD TRACE (NEGATIVE); URINE GLUCOSE (UA) NEGATIVE (NEGATIVE); URINE KETONE NEGATIVE (NEGATIVE); URINE LEUKOCYTE ESTERASE NEGATIVE (NEGATIVE); URINE NITRATE NEGATIVE (NEGATIVE); URINE PROTEIN NEGATIVE (NEGATIVE); URINE UROBILINOGEN 0.2 E.U./dL (0.2 - 1.0)
[2017-11-14 19:10] LABS: URINE BACTERIA NONE SEEN /hpf (NONE SEEN); URINE CLARITY CLEAR (CLEAR); URINE COLOR YELLOW; URINE EPITHELIAL CELLS NONE SEEN /lpf (FEW); URINE RBC 0-2 /hpf (0-5); URINE WBC NONE SEEN /hpf (0-5)
[2017-11-15 04:23] LABS: % BASOPHILS 0.9 % (0.0-2.0); % EOSINOPHILS 1.3 % (0.0-5.0); % LYMPHOCYTES 19.5 % (20.0-50.0); % MONOCYTES 7.8 % (2.0-10.0); % NEUTROPHILS 70.5 % (40.0-80.0); BASOPHILE ABSOLUTE 0.1 Th/cumm (0-0.2); EOSINOPHILE ABSOLUTE 0.1 Th/cmm (0.1-0.4); HEMATOCRIT 36.1 % (41.0-60); LYMPHOCYTE ABSOLUTE 1.2 Th/cmm (1.5-3.0); MEAN CELL VOLUME 96.8 fl (81-100); MEAN CORPUSCULAR HEMOGLOBIN 32.1 pg (27.0-31.0); MEAN CORPUSCULAR HGB CONC 33.2 pg (28.0-36.0); MONOCYTE ABSOLUTE 0.5 Th/cmm (0.3-1.0); NEUTROPHILE ABSOLUTE 4.2 Th/cmm (1.8-8.0); PLATELET COUNT 214 Th/cmm (150-400); RED BLOOD COUNT 3.73 Mil/cmm (3.80-5.10); RED CELL DISTRIBUTION WIDTH 12.3 % (11.5-20.0)
[2017-11-15 04:29] LABS: BUN - UREA NITROGEN 13 mg/dL (7-25); CALCIUM SERUM 9.1 mg/dL (8.6-10.3); CARBON DIOXIDE 28.3 mEq/L (21.0-31.0); CHLORIDE 105 mEq/L (98-107); GFR AFRICAN-AMERICAN > 60.0 ml/min (>90); GFR NON AFRICAN-AMERICAN > 60.0 ml/min; GLUCOSE 102 mg/dL (70-105); POTASSIUM SERUM 4.3 mEq/L (3.5-5.1); SODIUM SERUM 138 mEq/L (136-145)
[2017-11-15 04:30] LABS: WHITE BLOOD COUNT 6.1 Th/cmm (4.8-10.8)
[2017-11-15] MEDS: D5-0.9%NS 1,000 ML IV SCH ×2 (05:07→21:36)
[2017-11-15] MEDS: Ipratropium Neb 0.5 mg/2.5 mL UD HHN SCH ×4 (07:19→20:03)
[2017-11-15] MEDS: Albuterol Nebulizer 2.5mg/3mL HHN SCH ×4 (07:19→20:02)
[2017-11-15] MEDS: Multivitamin w/ Minerals Tab PO SCH (08:32)
[2017-11-15] MEDS: Benztropine 1 MG TAB PO SCH ×2 (08:33→16:37)
--- NOTE | 2017-11-15 08:46 | Diagnostic Imaging Report ---
Carotid ultrasound HISTORY: Syncope COMPARISON: None Technique: Longitudinal and transverse sonographic sector images of the carotid arteries were obtained with doppler analysis. FINDINGS: Exam was limited due to patient's medical condition and difficulty cooperating for the exam. Exam of the right side demonstrates generalized intimal thickening and mild generalized atherosclerotic vascular disease. There is increased velocity of the right external carotid artery at 173 cm/second. Exam of the left side demonstrates generalized intimal thickening mild generalized atherosclerotic vascular disease. There is mild increased velocities of the left proximal CCA at 150 cm/second. Mild increased velocity of the left carotid bulb is also seen at 126 cm/second. Mild increased velocity of the left external carotid artery is also seen at 136 cm/second. The left distal ICA was not well-visualized. Antegrade vertebral artery flow is demonstrated bilaterally. IMPRESSION: Limited examination due to patient's medical condition and difficulty cooperating for the exam. Mild generalized atherosclerotic vascular disease is noted. Areas of mild increased velocities of the left common carotid and carotid bulb are noted which are nonspecific and may be accentuated by technical factors and vessel tortuosity. No definite significant stenosis identified. Note that the distal left ICA to was not identified on this exam due to patient movement. Increased velocity of the bilateral external carotid arteries, nonspecific, and may be related to combination of technical factors, vessel tortuosity, and atherosclerosis.
[2017-11-15] MEDS ORDERED: Ferrous Sulfate 325 MG TAB PO SCH (09:00)
[2017-11-15] MEDS: Ferrous Sulfate 325 MG TAB PO SCH (11:40)
--- NOTE | 2017-11-15 13:02 | Consultation ---
DATE OF CONSULTATION: 11/14/2017 PSYCHIATRIC CONSULTATION CHIEF COMPLAINT: "I am fine." HISTORY OF PRESENT ILLNESS: The patient is a 57-year-old female with chronic history of dementia and psychosis, admitted to the hospital status post fall. The patient has been confused, restless, was very agitated in the ER, required to being to given emergency medications. Now, she is laughing incoherently, making nonsensical statements. PAST PSYCHIATRIC HISTORY: Psychosis and dementia. PAST MEDICAL HISTORY: As per H and P. PSYCHOSOCIAL HISTORY: The patient resides in [facility] and requires complete care. MENTAL STATUS EXAMINATION: The patient is oriented to person, not oriented to time or place. The patient is responding to internal stimuli, actively hallucinating. Thought process fragmented. Insight is poor and judgment is impaired. ASSESSMENT: Psychosis, not otherwise specified. Dementia, Alzheimer's type. PLAN: At this time, we would recommend continuation of supportive measures. The patient is currently on Seroquel. Consider change the Seroquel to Zyprexa, use Ativan p.r.n. We will try to minimize any sedation. Thank you for the consultation. JOB# [id number]
--- NOTE | 2017-11-15 15:27 | Internal Medicine Prog Note ---
Internal Medicine Subjective - Subjective Service Date: 11/15/17 Internal Medicine Objective - Results Result Diagrams: 11/15/17 04:10 11/15/17 04:10 Recent Labs: Laboratory Last Values WBC 6.1 Th/cmm (4.8-10.8) D 11/15/17 04:10 RBC 3.73 Mil/cmm (3.80-5.10) L 11/15/17 04:10 Hgb 12.0 gm/dL (12-16) 11/15/17 04:10 Hct 36.1 % (41.0-60) L 11/15/17 04:10 MCV 96.8 fl (81-100) 11/15/17 04:10 MCH 32.1 pg (27.0-31.0) H 11/15/17 04:10 MCHC Differential 33.2 pg (28.0-36.0) 11/15/17 04:10 RDW 12.3 % (11.5-20.0) 11/15/17 04:10 Plt Count 214 Th/cmm (150-400) 11/15/17 04:10 MPV 8.0 fl 11/15/17 04:10 Neutrophils % 70.5 % (40.0-80.0) 11/15/17 04:10 Lymphocytes % 19.5 % (20.0-50.0) L 11/15/17 04:10 Monocytes % 7.8 % (2.0-10.0) 11/15/17 04:10 Eosinophils % 1.3 % (0.0-5.0) 11/15/17 04:10 Basophils % 0.9 % (0.0-2.0) 11/15/17 04:10 PT 9.2 SECONDS (9.5-11.5) L 11/14/17 04:25 INR 0.89 (0.5-1.4) 11/14/17 04:25 Sodium 138 mEq/L (136-145) 11/15/17 04:10 Potassium 4.3 mEq/L (3.5-5.1) 11/15/17 04:10 Chloride 105 mEq/L (98-107) 11/15/17 04:10 Carbon Dioxide 28.3 mEq/L (21.0-31.0) 11/15/17 04:10 Anion Gap 9.0 (7.0-16.0) 11/15/17 04:10 BUN 13 mg/dL (7-25) 11/15/17 04:10 Creatinine 1.0 mg/dL (0.6-1.2) 11/15/17 04:10 Est GFR ( Amer) > 60.0 ml/min (>90) 11/15/17 04:10 Est GFR (Non-Af Amer) > 60.0 ml/min 11/15/17 04:10 BUN/Creatinine Ratio 13.0 11/15/17 04:10 Glucose 102 mg/dL (70-105) 11/15/17 04:10 Calcium 9.1 mg/dL (8.6-10.3) 11/15/17 04:10 Total Bilirubin 0.4 mg/dL (0.3-1.0) 11/14/17 04:25 AST 18 U/L (13-39) 11/14/17 04:25 ALT 11 U/L (7-52) 11/14/17 04:25 Alkaline Phosphatase 95 U/L (34-104) 11/14/17 04:25 Creatine Kinase 68 U/L (30-223) 11/14/17 04:25 Troponin I 0.01 ng/mL (0.01-0.05) 11/14/17 04:25 B-Natriuretic Peptide 35.6 pg/mL (5.0-100.0) 11/14/17 04:25 Total Protein 7.2 gm/dL (6.0-8.3) 11/14/17 04:25 Albumin 4.4 gm/dL (3.7-5.3) 11/14/17 04:25 Globulin 2.8 gm/dL 11/14/17 04:25 Albumin/Globulin Ratio 1.6 (1.0-1.8) 11/14/17 04:25 Triglycerides 55 mg/dL (<150) 11/14/17 04:25 Cholesterol 200 mg/dL (<200) 11/14/17 04:25 LDL Cholesterol Direct 84 mg/dL (75-193) 11/14/17 04:25 HDL Cholesterol 93 mg/dL (23-92) H 11/14/17 04:25 Serum , Qual NEGATIVE (NEGATIVE) 02/01/18 04:25 Urine Source CATH 11/14/17 18:24 Urine Color YELLOW 11/14/17 18:24 Urine Clarity CLEAR (CLEAR) 11/14/17 18:24 Urine pH 6.0 (4.6 - 8.0) 11/14/17 18:24 Ur Specific [place] 1.025 (1.005-1.030) 11/14/17 18:24 Urine Protein NEGATIVE mg/dL (NEGATIVE) 11/14/17 18:24 Urine Glucose (UA) NEGATIVE mg/dL (NEGATIVE) 11/14/17 18:24 Urine Ketones NEGATIVE mg/dL (NEGATIVE) 11/14/17 18:24 Urine Blood TRACE (NEGATIVE) 11/14/17 18:24 Urine Nitrate NEGATIVE (NEGATIVE) 11/14/17 18:24 Urine Bilirubin NEGATIVE (NEGATIVE) 11/14/17 18:24 Urine Urobilinogen 0.2 E.U./dL (0.2 - 1.0) 11/14/17 18:24 Ur Leukocyte Esterase NEGATIVE (NEGATIVE) 11/14/17 18:24 Urine RBC 0-2 /hpf (0-5) 11/14/17 18:24 Urine WBC NONE SEEN /hpf (0-5) 11/14/17 18:24 Ur Epithelial Cells NONE SEEN /lpf (FEW) 11/14/17 18:24 Urine Bacteria NONE SEEN /hpf (NONE SEEN) 11/14/17 18:24 - Physical Exam Vitals and I&O: Vital Signs Temp 98 F 11/15/17 00:00 Pulse 77 11/15/17 10:56 Resp 20 11/15/17 10:56 BP 128/74 11/15/17 06:00 Pulse Ox 96 11/15/17 12:00 Intake & Output 11/14/17 11/15/17 11/15/17 18:59 06:59 18:59 Intake Total 300 962 Balance 300 962 Weight (lbs) 121 lb Intake: Intake, IV Amount 962 D5-0.9%Ns 1,000 ml @ 60 962 mls/hr IV .[id number] [facility] Rx #:[id number] Oral 300 Other: # Voids 3 # Bowel Movements 1 Stool Characteristics Formed Active Medications: Current Medications Acetaminophen (Tylenol) 650 mg PO Q4HR PRN PRN Reason: Pain Or Fever above 101 Stop: 01/13/18 12:34 Albuterol Sulfate (Albuterol 2.5mg/3ml Neb Ud) 2.5 mg HHN QIDRT [facility] Stop: 01/13/18 14:59 Last Admin: 11/15/17 15:02 Dose: Not Given Benztropine Mesylate (Cogentin) 1 mg PO BID [facility] Stop: 01/13/18 16:59 Last Admin: 11/15/17 08:33 Dose: 1 mg Docusate Sodium (Colace) 100 mg PO DAILY [facility] Stop: 01/14/18 08:59 Last Admin: 11/15/17 08:32 Dose: 100 mg Ferrous Sulfate (Iron) 325 mg PO DAILY [facility] Stop: 01/14/18 08:59 Last Admin: 11/15/17 11:40 Dose: 325 mg Guaifenesin (Robitussin) 200 mg PO Q4HR PRN PRN Reason: Cough or Congestion Stop: 01/13/18 12:34 Dextrose/Sodium Chloride (D5-0.9%Ns) 1,000 mls @ 60 mls/hr IV .[id number] [facility] Stop: 01/13/18 12:44 Last Admin: 11/15/17 05:07 Dose: 60 mls/hr Ipratropium [place] (Atrovent Neb 0.5mg/2.5ml) 0.5 mg N QIDRT [facility] Stop: 01/13/18 14:59 Last Admin: 11/15/17 15:02 Dose: Not Given Levetiracetam (Keppra) 500 mg PO BID [facility] Stop: 01/13/18 16:59 Last Admin: 11/15/17 08:33 Dose: 500 mg Lorazepam (Ativan) 1 mg IV Q4HR PRN; Protocol PRN Reason: Seizure Stop: 01/13/18 12:34 Last Admin: 11/15/17 11:40 Dose: 1 mg Lorazepam (Ativan) 1 mg PO Q6HR PRN; Protocol PRN Reason: Agitation Stop: 01/13/18 13:22 Memantine (Namenda) 10 mg PO BID [facility] Stop: 01/13/18 16:59 Last Admin: 11/15/17 08:33 Dose: 10 mg Olanzapine (Zyprexa) 2.5 mg PO BID [facility] PRN Reason: Protocol Stop: 01/14/18 16:59 Ondansetron HCl (Zofran) 4 mg IV Q8H PRN PRN Reason: Nausea / Vomiting Stop: 01/13/18 12:34 Valproate Sodium (Depakene) 500 mg PO Q12H [facility] PRN Reason: Protocol Stop: 01/13/18 16:59 Last Admin: 11/15/17 05:06 Dose: 500 mg - Procedures Procedures: Procedures Procedure Code Date REPAIR FACE, EXTERNAL APPROACH [id number] 03/31/17 REPAIR SCALP SKIN, EXTERNAL APPROACH [id number] 11/14/17 RPR F/E/E/N/L/M 2.5 CM/< 79060 03/31/17 RPR S/N/AX/GEN/TRNK2.6-7.5CM 94245 11/14/17 Internal Medicine Assmt/Plan - Assessment Assessment: syncope s/p fall head laceration htn dyslipidemia seizures dementia anemia Alzheimer disease - Plan Plan: fall precautions follow up labs in am continue current plan of care
--- NOTE | 2017-11-16 04:18 | Progress Notes ---
DATE: 11/15/2017 SUBJECTIVE: The patient was seen, chart reviewed. Still confused, disorganized, restless at times. The patient is oriented to person, not oriented to time or place. ASSESSMENT: The patient still in psychotic phase, still with some agitation. PLAN: Continue to monitor closely for the time being. We will change Seroquel to Zyprexa to minimize any sedation. See if she would respond better to this medication. We will monitor closely while in the hospital. JOB# [id number]
[2017-11-16 06:59] LABS: % BASOPHILS 0.3 % (0.0-2.0); % EOSINOPHILS 1.2 % (0.0-5.0); % NEUTROPHILS 71.5 % (40.0-80.0); EOSINOPHILE ABSOLUTE 0.1 Th/cmm (0.1-0.4); HEMATOCRIT 35.1 % (41.0-60); HEMOGLOBIN 11.9 gm/dL (12-16); LYMPHOCYTE ABSOLUTE 1.4 Th/cmm (1.5-3.0); MEAN CELL VOLUME 96.9 fl (81-100); MEAN CORPUSCULAR HEMOGLOBIN 32.9 pg (27.0-31.0); MEAN CORPUSCULAR HGB CONC 33.9 pg (28.0-36.0); MONOCYTE ABSOLUTE 0.5 Th/cmm (0.3-1.0); NEUTROPHILE ABSOLUTE 4.9 Th/cmm (1.8-8.0); PLATELET COUNT 254 Th/cmm (150-400); RED BLOOD COUNT 3.62 Mil/cmm (3.80-5.10); RED CELL DISTRIBUTION WIDTH 12.3 % (11.5-20.0); WHITE BLOOD COUNT 6.9 Th/cmm (4.8-10.8)
[2017-11-16 07:15] LABS: ANION GAP 9.5 (7.0-16.0); BUN - UREA NITROGEN 16 mg/dL (7-25); CALCIUM SERUM 9.1 mg/dL (8.6-10.3); CARBON DIOXIDE 29.4 mEq/L (21.0-31.0); CHLORIDE 107 mEq/L (98-107); CREATININE - SERUM 0.8 mg/dL (0.6-1.2); GFR AFRICAN-AMERICAN > 60.0 ml/min (>90); GFR NON AFRICAN-AMERICAN > 60.0 ml/min; GLUCOSE 94 mg/dL (70-105); POTASSIUM SERUM 3.9 mEq/L (3.5-5.1); SODIUM SERUM 142 mEq/L (136-145)
[2017-11-16] MEDS: Ipratropium Neb 0.5 mg/2.5 mL UD HHN SCH ×4 (07:36→19:22)
[2017-11-16] MEDS: Albuterol Nebulizer 2.5mg/3mL HHN SCH ×4 (07:37→19:22)
[2017-11-16] MEDS: Benztropine 1 MG TAB PO SCH ×2 (09:42→16:34)
[2017-11-16] MEDS: Multivitamin w/ Minerals Tab PO SCH (09:42)
[2017-11-16] MEDS: Ferrous Sulfate 325 MG TAB PO SCH (09:42)
--- NOTE | 2017-11-16 16:50 | Internal Medicine Prog Note ---
Internal Medicine Subjective - Subjective Service Date: 11/16/17 Patient seen and examined:: with staff Patient is:: awake, agitated, confused Per staff patient has:: tolerating meds Internal Medicine Objective - Results Result Diagrams: 11/16/17 06:20 11/16/17 06:20 Recent Labs: Laboratory Last Values WBC 6.9 Th/cmm (4.8-10.8) 11/16/17 06:20 RBC 3.62 Mil/cmm (3.80-5.10) L 11/16/17 06:20 Hgb 11.9 gm/dL (12-16) L 11/16/17 06:20 Hct 35.1 % (41.0-60) L 11/16/17 06:20 MCV 96.9 fl (81-100) 11/16/17 06:20 MCH 32.9 pg (27.0-31.0) H 11/16/17 06:20 MCHC Differential 33.9 pg (28.0-36.0) 11/16/17 06:20 RDW 12.3 % (11.5-20.0) 11/16/17 06:20 Plt Count 254 Th/cmm (150-400) 11/16/17 06:20 MPV 8.0 fl 11/16/17 06:20 Neutrophils % 71.5 % (40.0-80.0) 11/16/17 06:20 Lymphocytes % 20.0 % (20.0-50.0) 11/16/17 06:20 Monocytes % 7.0 % (2.0-10.0) 11/16/17 06:20 Eosinophils % 1.2 % (0.0-5.0) 11/16/17 06:20 Basophils % 0.3 % (0.0-2.0) 11/16/17 06:20 PT 9.2 SECONDS (9.5-11.5) L 11/14/17 04:25 INR 0.89 (0.5-1.4) 11/14/17 04:25 Sodium 142 mEq/L (136-145) 11/16/17 06:20 Potassium 3.9 mEq/L (3.5-5.1) 11/16/17 06:20 Chloride 107 mEq/L (98-107) 11/16/17 06:20 Carbon Dioxide 29.4 mEq/L (21.0-31.0) 11/16/17 06:20 Anion Gap 9.5 (7.0-16.0) 11/16/17 06:20 BUN 16 mg/dL (7-25) 11/16/17 06:20 Creatinine 0.8 mg/dL (0.6-1.2) 11/16/17 06:20 Est GFR ( Amer) > 60.0 ml/min (>90) 11/16/17 06:20 Est GFR (Non-Af Amer) > 60.0 ml/min 11/16/17 06:20 BUN/Creatinine Ratio 20.0 11/16/17 06:20 Glucose 94 mg/dL (70-105) 11/16/17 06:20 Calcium 9.1 mg/dL (8.6-10.3) 11/16/17 06:20 Total Bilirubin 0.4 mg/dL (0.3-1.0) 11/14/17 04:25 AST 18 U/L (13-39) 11/14/17 04:25 ALT 11 U/L (7-52) 11/14/17 04:25 Alkaline Phosphatase 95 U/L (34-104) 11/14/17 04:25 Creatine Kinase 68 U/L (30-223) 11/14/17 04:25 Troponin I 0.01 ng/mL (0.01-0.05) 11/14/17 04:25 B-Natriuretic Peptide 35.6 pg/mL (5.0-100.0) 11/14/17 04:25 Total Protein 7.2 gm/dL (6.0-8.3) 11/14/17 04:25 Albumin 4.4 gm/dL (3.7-5.3) 11/14/17 04:25 Globulin 2.8 gm/dL 11/14/17 04:25 Albumin/Globulin Ratio 1.6 (1.0-1.8) 11/14/17 04:25 Triglycerides 55 mg/dL (<150) 11/14/17 04:25 Cholesterol 200 mg/dL (<200) 11/14/17 04:25 LDL Cholesterol Direct 84 mg/dL (75-193) 11/14/17 04:25 HDL Cholesterol 93 mg/dL (23-92) H 11/14/17 04:25 Serum , Qual NEGATIVE (NEGATIVE) 11/14/17 04:25 Urine Source CATH 11/14/17 18:24 Urine Color YELLOW 11/14/17 18:24 Urine Clarity CLEAR (CLEAR) 11/14/17 18:24 Urine pH 6.0 (4.6 - 8.0) 11/14/17 18:24 Ur Specific [place] 1.025 (1.005-1.030) 11/14/17 18:24 Urine Protein NEGATIVE mg/dL (NEGATIVE) 11/14/17 18:24 Urine Glucose (UA) NEGATIVE mg/dL (NEGATIVE) 11/14/17 18:24 Urine Ketones NEGATIVE mg/dL (NEGATIVE) 11/14/17 18:24 Urine Blood TRACE (NEGATIVE) 11/14/17 18:24 Urine Nitrate NEGATIVE (NEGATIVE) 11/14/17 18:24 Urine Bilirubin NEGATIVE (NEGATIVE) 11/14/17 18:24 Urine Urobilinogen 0.2 E.U./dL (0.2 - 1.0) 11/14/17 18:24 Ur Leukocyte Esterase NEGATIVE (NEGATIVE) 11/14/17 18:24 Urine RBC 0-2 /hpf (0-5) 11/14/17 18:24 Urine WBC NONE SEEN /hpf (0-5) 11/14/17 18:24 Ur Epithelial Cells NONE SEEN /lpf (FEW) 11/14/17 18:24 Urine Bacteria NONE SEEN /hpf (NONE SEEN) 11/14/17 18:24 - Physical Exam Vitals and I&O: Vital Signs Temp 96.4 F 11/16/17 12:08 Pulse 68 11/16/17 15:04 Resp 20 11/16/17 15:04 BP 153/96 11/16/17 12:08 Pulse Ox 96 11/16/17 15:04 Intake & Output 11/15/17 11/16/17 11/16/17 18:59 06:59 18:59 Intake Total 420 989 Balance 420 989 Weight (lbs) 121 lb Intake: Intake, IV Amount 989 D5-0.9%Ns 1,000 ml @ 60 989 mls/hr IV .[id number] [facility] Rx #:[id number] Oral 420 Other: # Voids 5 # Bowel Movements 0 Active Medications: Current Medications Acetaminophen (Tylenol) 650 mg PO Q4HR PRN PRN Reason: Pain Or Fever above 101 Stop: 01/13/18 12:34 Last Admin: 11/16/17 05:26 Dose: 650 mg Albuterol Sulfate (Albuterol 2.5mg/3ml Neb Ud) 2.5 mg N QIDRT [facility] Stop: 01/13/18 14:59 Last Admin: 11/16/17 15:04 Dose: Not Given Benztropine Mesylate (Cogentin) 1 mg PO BID [facility] Stop: 01/13/18 16:59 Last Admin: 11/16/17 16:34 Dose: 1 mg Docusate Sodium (Colace) 100 mg PO DAILY [facility] Stop: 01/14/18 08:59 Last Admin: 11/16/17 09:42 Dose: 100 mg Ferrous Sulfate (Iron) 325 mg PO DAILY [facility] Stop: 01/14/18 08:59 Last Admin: 11/16/17 09:42 Dose: 325 mg Guaifenesin (Robitussin) 200 mg PO Q4HR PRN PRN Reason: Cough or Congestion Stop: 01/13/18 12:34 Dextrose/Sodium Chloride (D5-0.9%Ns) 1,000 mls @ 60 mls/hr IV .[id number] [facility] Stop: 01/13/18 12:44 Last Admin: 11/15/17 21:36 Dose: 60 mls/hr Ipratropium [place] (Atrovent Neb 0.5mg/2.5ml) 0.5 mg N QIDRT [facility] Stop: 01/13/18 14:59 Last Admin: 11/16/17 15:04 Dose: Not Given Levetiracetam (Keppra) 500 mg PO BID [facility] Stop: 01/13/18 16:59 Last Admin: 11/16/17 16:34 Dose: 500 mg Lorazepam (Ativan) 1 mg IV Q4HR PRN; Protocol PRN Reason: Seizure Stop: 01/13/18 12:34 Last Admin: 11/16/17 16:33 Dose: 1 mg Lorazepam (Ativan) 1 mg PO Q6HR PRN; Protocol PRN Reason: Agitation Stop: 01/13/18 13:22 Memantine (Namenda) 10 mg PO BID [facility] Stop: 01/13/18 16:59 Last Admin: 11/16/17 16:34 Dose: 10 mg Olanzapine (Zyprexa) 2.5 mg PO BID [facility] PRN Reason: Protocol Stop: 01/14/18 16:59 Ondansetron HCl (Zofran) 4 mg IV Q8H PRN PRN Reason: Nausea / Vomiting Stop: 01/13/18 12:34 Valproate Sodium (Depakene) 500 mg PO Q12H [facility] PRN Reason: Protocol Stop: 01/13/18 16:59 Last Admin: 11/16/17 16:34 Dose: 500 mg General: alert HEENT: NC/AT, PERRLA Neck: Supple Lungs: CTAB Cardiovascular: RRR, Normal S1, Normal S2, without murmur Abdomen: soft, non-tender, non-distended, positive bowel sound - Procedures Procedures: Procedures Procedure Code Date REPAIR FACE, EXTERNAL APPROACH [id number] 03/31/17 REPAIR SCALP SKIN, EXTERNAL APPROACH [id number] 11/14/17 RPR F/E/E/N/L/M 2.5 CM/< 51156 03/31/17 RPR S/N/AX/GEN/TRNK2.6-7.5CM 64597 11/14/17 Internal Medicine Assmt/Plan - Assessment Assessment: syncope s/p fall head laceration htn dyslipidemia seizures dementia anemia Alzheimer disease - Plan Plan: if medically stable with transfer to [facility] fall precautions follow up labs in am continue current plan of care
[2017-11-16] MEDS: D5-0.9%NS 1,000 ML IV SCH (23:49)
[2017-11-17 06:48] LABS: % BASOPHILS 3.4 % (0.0-2.0); % EOSINOPHILS 1.3 % (0.0-5.0); % LYMPHOCYTES 27.8 % (20.0-50.0); % MONOCYTES 6.8 % (2.0-10.0); % NEUTROPHILS 60.7 % (40.0-80.0); BASOPHILE ABSOLUTE 0.2 Th/cumm (0-0.2); EOSINOPHILE ABSOLUTE 0.1 Th/cmm (0.1-0.4); HEMATOCRIT 37.3 % (41.0-60); HEMOGLOBIN 12.6 gm/dL (12-16); LYMPHOCYTE ABSOLUTE 1.8 Th/cmm (1.5-3.0); MEAN CELL VOLUME 96.7 fl (81-100); MEAN CORPUSCULAR HEMOGLOBIN 32.6 pg (27.0-31.0); MEAN CORPUSCULAR HGB CONC 33.7 pg (28.0-36.0); MEAN PLATELET VOLUME 8.3 fl; MONOCYTE ABSOLUTE 0.4 Th/cmm (0.3-1.0); PLATELET COUNT 255 Th/cmm (150-400); RED BLOOD COUNT 3.86 Mil/cmm (3.80-5.10); RED CELL DISTRIBUTION WIDTH 12.1 % (11.5-20.0); WHITE BLOOD COUNT 6.5 Th/cmm (4.8-10.8)
[2017-11-17 07:23] LABS: BUN - UREA NITROGEN 16 mg/dL (7-25); CALCIUM SERUM 9.6 mg/dL (8.6-10.3); CHLORIDE 105 mEq/L (98-107); CREATININE - SERUM 0.8 mg/dL (0.6-1.2); GFR AFRICAN-AMERICAN > 60.0 ml/min (>90); GFR NON AFRICAN-AMERICAN > 60.0 ml/min; GLUCOSE 97 mg/dL (70-105); POTASSIUM SERUM 4.2 mEq/L (3.5-5.1); SODIUM SERUM 139 mEq/L (136-145)
[2017-11-17] MEDS: Albuterol Nebulizer 2.5mg/3mL HHN SCH ×4 (07:37→19:14)
[2017-11-17] MEDS: Ipratropium Neb 0.5 mg/2.5 mL UD HHN SCH ×4 (07:37→19:14)
[2017-11-17 08:13] LABS: ANION GAP 14.6 (7.0-16.0); CARBON DIOXIDE 23.6 mEq/L (21.0-31.0)
[2017-11-17] MEDS: Multivitamin w/ Minerals Tab PO SCH (08:26)
[2017-11-17] MEDS: Ferrous Sulfate 325 MG TAB PO SCH (08:26)
[2017-11-17] MEDS: Benztropine 1 MG TAB PO SCH ×2 (08:26→16:51)
--- NOTE | 2017-11-17 15:38 | Internal Medicine Prog Note ---
Internal Medicine Subjective - Subjective Service Date: 11/17/17 Patient is:: awake, agitated, confused Per staff patient has:: tolerating meds Internal Medicine Objective - Results Result Diagrams: 11/17/17 06:27 11/17/17 06:27 Recent Labs: Laboratory Last Values WBC 6.5 Th/cmm (4.8-10.8) 11/17/17 06:27 RBC 3.86 Mil/cmm (3.80-5.10) 11/17/17 06:27 Hgb 12.6 gm/dL (12-16) 11/17/17 06:27 Hct 37.3 % (41.0-60) L 11/17/17 06: MCV 96.7 fl (81-100) 11/17/17 06:27 MCH 32.6 pg (27.0-31.0) H 11/17/17 06:27 MCHC Differential 33.7 pg (28.0-36.0) 11/17/17 06: RDW 12.1 % (11.5-20.0) 11/17/17 06:27 Plt Count 255 Th/cmm (150-400) 11/17/17 06:27 MPV 8.3 fl 11/17/17 06:27 Neutrophils % 60.7 % (40.0-80.0) 11/17/17 06: Lymphocytes % 27.8 % (20.0-50.0) 11/17/17 06: Monocytes % 6.8 % (2.0-10.0) 11/17/17 06: Eosinophils % 1.3 % (0.0-5.0) 11/17/17 06: Basophils % 3.4 % (0.0-2.0) H 11/17/17 06:27 PT 9.2 SECONDS (9.5-11.5) L 11/14/17 04:25 INR 0.89 (0.5-1.4) 11/14/17 04:25 Sodium 139 mEq/L (136-145) 11/17/17 06:27 Potassium 4.2 mEq/L (3.5-5.1) 11/17/17 06: Chloride 105 mEq/L (98-107) 11/17/17 06:27 Carbon Dioxide 23.6 mEq/L (21.0-31.0) 11/17/17 06:27 Anion Gap 14.6 (7.0-16.0) 11/17/17 06:27 BUN 16 mg/dL (7-25) 11/17/17 06:27 Creatinine 0.8 mg/dL (0.6-1.2) 11/17/17 06:27 Est GFR ( Amer) > 60.0 ml/min (>90) 11/17/17 06: Est GFR (Non-Af Amer) > 60.0 ml/min 11/17/17 06: BUN/Creatinine Ratio 20.0 11/17/17 06: Glucose 97 mg/dL (70-105) 11/17/17 06: Calcium 9.6 mg/dL (8.6-10.3) 11/17/17 06: Total Bilirubin 0.4 mg/dL (0.3-1.0) 11/14/17 04:25 AST 18 U/L (13-39) 11/14/17 04:25 ALT 11 U/L (7-52) 11/14/17 04:25 Alkaline Phosphatase 95 U/L (34-104) 11/14/17 04:25 Creatine Kinase 68 U/L (30-223) 11/14/17 04:25 Troponin I 0.01 ng/mL (0.01-0.05) 11/14/17 04:25 B-Natriuretic Peptide 35.6 pg/mL (5.0-100.0) 11/14/17 04:25 Total Protein 7.2 gm/dL (6.0-8.3) 11/14/17 04:25 Albumin 4.4 gm/dL (3.7-5.3) 11/14/17 04:25 Globulin 2.8 gm/dL 11/14/17 04:25 Albumin/Globulin Ratio 1.6 (1.0-1.8) 11/14/17 04:25 Triglycerides 55 mg/dL (<150) 11/14/17 04:25 Cholesterol 200 mg/dL (<200) 11/14/17 04:25 LDL Cholesterol Direct 84 mg/dL (75-193) 11/14/17 04:25 HDL Cholesterol 93 mg/dL (23-92) H 11/14/17 04:25 Serum , Qual NEGATIVE (NEGATIVE) 11/14/17 04:25 Urine Source CATH 11/14/17 18:24 Urine Color YELLOW 11/14/17 18:24 Urine Clarity CLEAR (CLEAR) 11/14/17 18:24 Urine pH 6.0 (4.6 - 8.0) 11/14/17 18:24 Ur Specific [place] 1.025 (1.005-1.030) 11/14/17 18:24 Urine Protein NEGATIVE mg/dL (NEGATIVE) 11/14/17 18:24 Urine Glucose (UA) NEGATIVE mg/dL (NEGATIVE) 11/14/17 18:24 Urine Ketones NEGATIVE mg/dL (NEGATIVE) 11/14/17 18:24 Urine Blood TRACE (NEGATIVE) 11/14/17 18:24 Urine Nitrate NEGATIVE (NEGATIVE) 11/14/17 18:24 Urine Bilirubin NEGATIVE (NEGATIVE) 11/14/17 18:24 Urine Urobilinogen 0.2 E.U./dL (0.2 - 1.0) 11/14/17 18:24 Ur Leukocyte Esterase NEGATIVE (NEGATIVE) 11/14/17 18:24 Urine RBC 0-2 /hpf (0-5) 11/14/17 18:24 Urine WBC NONE SEEN /hpf (0-5) 11/14/17 18:24 Ur Epithelial Cells NONE SEEN /lpf (FEW) 11/14/17 18:24 Urine Bacteria NONE SEEN /hpf (NONE SEEN) 11/14/17 18:24 - Physical Exam Vitals and I&O: Vital Signs Temp 98.1 F 11/17/17 12:00 Pulse 63 11/17/17 14:11 Resp 18 11/17/17 14:11 BP 117/78 11/17/17 12:00 Pulse Ox 96 11/17/17 14:11 Intake & Output 11/16/17 11/17/17 11/17/17 18:59 06:59 18:59 Intake Total 1400 0 Output Total 1 Balance 1400 -1 Weight (lbs) 121 lb 0 oz Intake: Intake, IV Amount 1000 D5-0.9%Ns 1,000 ml @ 60 1000 mls/hr IV .[id number] [facility] Rx #:[id number] Oral 400 0 Output: Stool 1 Other: # Voids 3 2 # Bowel Movements 0 0 Active Medications: Current Medications Acetaminophen (Tylenol) 650 mg PO Q4HR PRN PRN Reason: Pain Or Fever above 101 Stop: 01/13/18 12:34 Last Admin: 11/16/17 05:26 Dose: 650 mg Albuterol Sulfate (Albuterol 2.5mg/3ml Neb Ud) 2.5 mg N QIDRT [facility] Stop: 01/13/18 14:59 Last Admin: 11/17/17 14:11 Dose: Not Given Benztropine Mesylate (Cogentin) 1 mg PO BID [facility] Stop: 01/13/18 16:59 Last Admin: 11/17/17 08:26 Dose: 1 mg Docusate Sodium (Colace) 100 mg PO DAILY [facility] Stop: 01/14/18 08:59 Last Admin: 11/17/17 08:26 Dose: 100 mg Ferrous Sulfate (Iron) 325 mg PO DAILY [facility] Stop: 01/14/18 08:59 Last Admin: 11/17/17 08:26 Dose: 325 mg Guaifenesin (Robitussin) 200 mg PO Q4HR PRN PRN Reason: Cough or Congestion Stop: 01/13/18 12:34 Dextrose/Sodium Chloride (D5-0.9%Ns) 1,000 mls @ 60 mls/hr IV .[id number] [facility] Stop: 01/13/18 12:44 Last Admin: 11/16/17 23:49 Dose: 60 mls/hr Ipratropium [place] (Atrovent Neb 0.5mg/2.5ml) 0.5 mg N QIDRT [facility] Stop: 01/13/18 14:59 Last Admin: 11/17/17 14:10 Dose: Not Given Levetiracetam (Keppra) 500 mg PO BID [facility] Stop: 01/13/18 16:59 Last Admin: 11/17/17 08:26 Dose: 500 mg Lorazepam (Ativan) 1 mg IV Q4HR PRN; Protocol PRN Reason: Seizure Stop: 01/13/18 12:34 Last Admin: 11/16/17 16:33 Dose: 1 mg Lorazepam (Ativan) 1 mg PO Q6HR PRN; Protocol PRN Reason: Agitation Stop: 01/13/18 13:22 Last Admin: 11/17/17 05:02 Dose: 1 mg Memantine (Namenda) 10 mg PO BID [facility] Stop: 01/13/18 16:59 Last Admin: 11/17/17 08:26 Dose: 10 mg Olanzapine (Zyprexa) 2.5 mg PO BID [facility] PRN Reason: Protocol Stop: 01/14/18 16:59 Ondansetron HCl (Zofran) 4 mg IV Q8H PRN PRN Reason: Nausea / Vomiting Stop: 01/13/18 12:34 Valproate Sodium (Depakene) 500 mg PO Q12H [facility] PRN Reason: Protocol Stop: 01/13/18 16:59 Last Admin: 11/17/17 05:02 Dose: 500 mg General: alert HEENT: NC/AT, PERRLA Neck: Supple Lungs: CTAB Cardiovascular: RRR, Normal S1, Normal S2, without murmur Abdomen: soft, non-tender, non-distended, positive bowel sound - Procedures Procedures: Procedures Procedure Code Date REPAIR FACE, EXTERNAL APPROACH [id number] 03/31/17 REPAIR SCALP SKIN, EXTERNAL APPROACH [id number] 11/14/17 RPR F/E/E/N/L/M 2.5 CM/< 96632 03/31/17 RPR S/N/AX/GEN/TRNK2.6-7.5CM 96410 11/14/17 Internal Medicine Assmt/Plan - Assessment Assessment: syncope s/p fall head laceration htn dyslipidemia seizures dementia anemia Alzheimer disease - Plan Plan: fall precautions follow up labs in am continue current plan of care
[2017-11-18] MEDS: D5-0.9%NS 1,000 ML IV SCH (05:43)
[2017-11-18] MEDS: Ipratropium Neb 0.5 mg/2.5 mL UD HHN SCH ×2 (07:49→11:43)
[2017-11-18] MEDS: Albuterol Nebulizer 2.5mg/3mL HHN SCH ×2 (07:49→11:43)
[2017-11-18] MEDS: Ferrous Sulfate 325 MG TAB PO SCH (08:00)
[2017-11-18] MEDS: Multivitamin w/ Minerals Tab PO SCH (08:00)
[2017-11-18] MEDS: Benztropine 1 MG TAB PO SCH ×2 (08:00→16:00)
--- NOTE | 2017-11-18 12:59 | Internal Medicine Prog Note ---
Internal Medicine Subjective - Subjective Service Date: 11/18/17 (DC SUMMARY 2007189) Patient is:: awake, agitated, confused Per staff patient has:: tolerating meds Internal Medicine Objective - Results Result Diagrams: 11/17/17 06:27 11/17/17 06:27 Recent Labs: Laboratory Last Values WBC 6.5 Th/cmm (4.8-10.8) 11/17/17 06:27 RBC 3.86 Mil/cmm (3.80-5.10) 11/17/17 06:27 Hgb 12.6 gm/dL (12-16) 11/17/17 06:27 Hct 37.3 % (41.0-60) L 11/17/17 06:27 MCV 96.7 fl (81-100) 11/17/17 06:27 MCH 32.6 pg (27.0-31.0) H 11/17/17 06:27 MCHC Differential 33.7 pg (28.0-36.0) 11/17/17 06:27 RDW 12.1 % (11.5-20.0) 11/17/17 06:27 Plt Count 255 Th/cmm (150-400) 11/17/17 06:27 MPV 8.3 fl 11/17/17 06:27 Neutrophils % 60.7 % (40.0-80.0) 11/17/17 06:27 Lymphocytes % 27.8 % (20.0-50.0) 11/17/17 06:27 Monocytes % 6.8 % (2.0-10.0) 11/17/17 06:27 Eosinophils % 1.3 % (0.0-5.0) 11/17/17 06:27 Basophils % 3.4 % (0.0-2.0) H 11/17/17 06:27 PT 9.2 SECONDS (9.5-11.5) L 11/14/17 04:25 INR 0.89 (0.5-1.4) 11/14/17 04:25 Sodium 139 mEq/L (136-145) 11/17/17 06:27 Potassium 4.2 mEq/L (3.5-5.1) 11/17/17 06:27 Chloride 105 mEq/L (98-107) 11/17/17 06:27 Carbon Dioxide 23.6 mEq/L (21.0-31.0) 11/17/17 06:27 Anion Gap 14.6 (7.0-16.0) 11/17/17 06:27 BUN 16 mg/dL (7-25) 11/17/17 06:27 Creatinine 0.8 mg/dL (0.6-1.2) 11/17/17 06:27 Est GFR ( Amer) > 60.0 ml/min (>90) 11/17/17 06:27 Est GFR (Non-Af Amer) > 60.0 ml/min 11/17/17 06:27 BUN/Creatinine Ratio 20.0 11/17/17 06:27 Glucose 97 mg/dL (70-105) 11/17/17 06:27 Calcium 9.6 mg/dL (8.6-10.3) 11/17/17 06:27 Total Bilirubin 0.4 mg/dL (0.3-1.0) 11/14/17 04:25 AST 18 U/L (13-39) 11/14/17 04:25 ALT 11 U/L (7-52) 11/14/17 04:25 Alkaline Phosphatase 95 U/L (34-104) 11/14/17 04:25 Creatine Kinase 68 U/L (30-223) 11/14/17 04:25 Troponin I 0.01 ng/mL (0.01-0.05) 11/14/17 04:25 B-Natriuretic Peptide 35.6 pg/mL (5.0-100.0) 11/14/17 04:25 Total Protein 7.2 gm/dL (6.0-8.3) 11/14/17 04:25 Albumin 4.4 gm/dL (3.7-5.3) 11/14/17 04:25 Globulin 2.8 gm/dL 11/14/17 04:25 Albumin/Globulin Ratio 1.6 (1.0-1.8) 11/14/17 04:25 Triglycerides 55 mg/dL (<150) 11/14/17 04:25 Cholesterol 200 mg/dL (<200) 11/14/17 04:25 LDL Cholesterol Direct 84 mg/dL (75-193) 11/14/17 04:25 HDL Cholesterol 93 mg/dL (23-92) H 11/14/17 04:25 Serum , Qual NEGATIVE (NEGATIVE) 11/14/17 04:25 Urine Source CATH 11/14/17 18:24 Urine Color YELLOW 11/14/17 18:24 Urine Clarity CLEAR (CLEAR) 11/14/17 18:24 Urine pH 6.0 (4.6 - 8.0) 11/14/17 18:24 Ur Specific [place] 1.025 (1.005-1.030) 11/14/17 18:24 Urine Protein NEGATIVE mg/dL (NEGATIVE) 11/14/17 18:24 Urine Glucose (UA) NEGATIVE mg/dL (NEGATIVE) 11/14/17 18:24 Urine Ketones NEGATIVE mg/dL (NEGATIVE) 11/14/17 18:24 Urine Blood TRACE (NEGATIVE) 11/14/17 18:24 Urine Nitrate NEGATIVE (NEGATIVE) 11/14/17 18:24 Urine Bilirubin NEGATIVE (NEGATIVE) 11/14/17 18:24 Urine Urobilinogen 0.2 E.U./dL (0.2 - 1.0) 11/14/17 18:24 Ur Leukocyte Esterase NEGATIVE (NEGATIVE) 11/14/17 18:24 Urine RBC 0-2 /hpf (0-5) 11/14/17 18:24 Urine WBC NONE SEEN /hpf (0-5) 11/14/17 18:24 Ur Epithelial Cells NONE SEEN /lpf (FEW) 11/14/17 18:24 Urine Bacteria NONE SEEN /hpf (NONE SEEN) 11/14/17 18:24 - Physical Exam Vitals and I&O: Vital Signs Temp 97.9 F 11/18/17 08:00 Pulse 73 11/18/17 08:00 Resp 19 11/18/17 08:00 BP 152/85 11/18/17 08:00 Pulse Ox 98 11/18/17 08:00 Intake & Output 11/17/17 11/18/17 11/18/17 18:59 06:59 18:59 Intake Total 1850 350 Balance 1850 350 Weight (lbs) 121 lb 121 lb Intake: Intake, IV Amount 1000 D5-0.9%Ns 1,000 ml @ 60 1000 mls/hr IV .[id number] [facility] Rx #:[id number] Oral 850 350 Other: # Voids 3 1 # Bowel Movements 1 0 Active Medications: Current Medications Benztropine Mesylate (Cogentin) 1 mg PO BID [facility] Stop: 01/13/18 16:59 Last Admin: 11/18/17 08:00 Dose: 1 mg Docusate Sodium (Colace) 100 mg PO DAILY JAGDEEP Stop: 01/14/18 08:59 Last Admin: 11/18/17 08:00 Dose: 100 mg Ferrous Sulfate (Iron) 325 mg PO DAILY JAGDEEP Stop: 01/14/18 08:59 Last Admin: 11/18/17 08:00 Dose: 325 mg Levetiracetam (Keppra) 500 mg PO BID JAGDEEP Stop: 01/13/18 16:59 Last Admin: 11/18/17 08:00 Dose: 500 mg Lorazepam (Ativan) 1 mg PO Q6HR PRN; Protocol PRN Reason: Agitation Stop: 01/13/18 13:22 Last Admin: 11/18/17 05:43 Dose: 1 mg Memantine (Namenda) 10 mg PO BID [facility] Stop: 01/13/18 16:59 Last Admin: 11/18/17 08:00 Dose: 10 mg Valproate Sodium (Depakene) 500 mg PO Q12H [facility] PRN Reason: Protocol Stop: 01/13/18 16:59 Last Admin: 11/18/17 05:40 Dose: 500 mg General: alert HEENT: NC/AT, PERRLA Neck: Supple Lungs: CTAB Cardiovascular: RRR, Normal S1, Normal S2, without murmur Abdomen: soft, non-tender, non-distended, positive bowel sound - Procedures Procedures: Procedures Procedure Code Date REPAIR FACE, EXTERNAL APPROACH [id number] 03/31/17 REPAIR SCALP SKIN, EXTERNAL APPROACH [id number] 11/14/17 RPR F/E/E/N/L/M 2.5 CM/< [id number] 03/31/17 RPR S/N/AX/GEN/TRNK2.6-7.5CM [id number] 11/14/17 Internal Medicine Assmt/Plan - Assessment Assessment: syncope s/p fall head laceration htn dyslipidemia seizures dementia anemia Alzheimer disease - Plan Plan: fall precautions follow up labs in am continue current plan of care
--- NOTE | 2017-11-18 23:25 | Discharge Summary ---
DATE OF DISCHARGE: 11/18/2017 DICTATED FOR: Augustus Doty D.O. DISCHARGE DIAGNOSES: Syncope, status post fall, head laceration, hypertension, dyslipidemia, seizures, dementia, anemia, Alzheimer's disease. HISTORY OF PRESENT ILLNESS: This is a 57-year-old female who is a resident of [facility]. I was called on this patient at 3 in the morning due to status post fall. According to charge nurse, the patient was walking to the restroom, she fell and hit her head against the chair and the patient sustained a laceration on the back of her head. In the ER, the patient received shanique. The patient did not have any dizziness or weakness per nursing staff. For further management, the patient was admitted. PHYSICAL EXAMINATION: GENERAL: Elderly female, awake, alert with confusion, no apparent distress. VITAL SIGNS: Stable. HEENT: Head normocephalic, atraumatic. NECK: Supple. No mass. LUNGS: Clear bilaterally. HEART: Regular rhythm. ABDOMEN: Soft, nontender. HOSPITAL COURSE: During the hospital stay, the patient was admitted to the ICU unit. The patient had a 1:1 sitter. The patient also had a carotid ultrasound done and the impression is limited examination due to the patient's medical condition, difficulty cooperating with exam, mild generalized atherosclerotic vascular disease is noted. The patient also had a CT of the head done, negative for any intracranial bleed. The patient was also kept on IV fluids for hydration as well. Fall precautions initiated. The patient also had Neurology consultation as well. The patient is stable during the hospital stay. For this reason, the patient is stable for discharge. CONDITION UPON DISCHARGE: Fair. DISPOSITION: [facility]. JOB# [id number]
--- NOTE | 2017-11-19 03:02 | Progress Notes ---
DATE: 11/18/2017 CHIEF COMPLAINT: Psychotic illness. SUBJECTIVE: The patient was seen making nonsensical statements. She is awake, restless, sitting in a geriatric chair, has mittens on, trying to scratch herself at times. MENTAL STATUS EXAMINATION: The patient is internally preoccupied, oriented to person, not oriented to time or place. Insight is poor. Judgment is impaired. ASSESSMENT: The patient is still highly agitated, still actively hallucinating. PLAN: We will decrease Zyprexa to 5 mg p.o. b.i.d. Monitor closely. Continue supportive measures. JOB# [id number]
== END 2017-11-18 18:24 | disposition home or self-care (01) | DRG 204 ==
LOC: ER 03:56 → TELE 09:12 → ICU 10:00 → MSI 11-15 18:54
PROVIDERS: ADMIT Internal Medicine; ATTEND Internal Medicine
PROC: 0HQ0XZZ Repair Scalp Skin, External Approach (ICD-10-PCS; principal; 2017-11-14)
DX: R55 Syncope and collapse (principal); G93.41 Metabolic encephalopathy; R56.9 Unspecified convulsions; G30.9 Alzheimer's disease, unspecified; I65.29 Occlusion and stenosis of unspecified carotid artery; S01.01XA Laceration without foreign body of scalp, initial encounter; F02.80 Dementia in other diseases classified elsewhere, unspecified severity, without behavioral disturbance, psychotic disturbance, mood disturbance, and anxiety; E78.5 Hyperlipidemia, unspecified; D64.9 Anemia, unspecified; W18.30XA Fall on same level, unspecified, initial encounter; I10 Essential (primary) hypertension; Z66 Do not resuscitate; F31.9 Bipolar disorder, unspecified; F29 Unspecified psychosis not due to a substance or known physiological condition; Y93.89 Activity, other specified; Y92.89 Other specified places as the place of occurrence of the external cause; Y99.8 Other external cause status; Z83.3 Family history of diabetes mellitus; Z82.49 Family history of ischemic heart disease and other diseases of the circulatory system
CPT/HCPCS: 12002; 36415-UA; 70450-TC; 80048-TC; 80053-TC; 80061-TC; 81001-TC; 82550-TC; 83880-TC; 84484-TC; 84703-TC; 85025-TC; 85610-TC; 90779; 93005; 93880-TC; 94640; 94760; 97530; J0696; J2060; J7042; J7613; X3904; Z7610